=== PATIENT | female | born 1990 | race African-American/Black ===

== ENCOUNTER 2016-10-12 20:08 | Emergency (ER) | payer OTHER ==
--- NOTE | 2016-10-12 21:22 | ER Document Report ---
ED General - General Chief Complaint: Anxiety Stated Complaint: PANIC ATTACK Time seen by provider: 21:16 Mode of Arrival: Ambulatory Information source: Patient Notes: 26-year-old female presents to ED for anxiety attack prior to calling EMS. She states that it is all resolved now. States she took her medication but she still felt like her heart was racing and she was hyperventilating. She said she had not had a panic attack in awhile and this panic attack scared her. TRAVEL OUTSIDE OF THE [place] IN LAST 30 DAYS: No - HPI Onset: This evening Onset/Duration: Gone Quality of pain: No pain Severity: None Pain Level: Denies Associated symptoms: Other - States she was having a panic attack hyperventilating and her heart was racing all of these are gone now Exacerbated by: Denies Relieved by: Denies Similar symptoms previously: Yes Recently seen / treated by doctor: No - Related Data Allergies/Adverse Reactions: No Known Allergies Allergy (Verified 10/12/16 21:01) Home Medications: Current Home Medications Cariprazine Hydrochloride [Vraylar] 3 mg PO DAILY 10/12/16 [History] Duloxetine HCl [Duloxetine HCl] 60 mg PO BID 10/12/16 [History] Modafinil [Modafinil] 200 mg PO DAILY 10/12/16 [History] Past Medical History - General Information source: Patient - Social History Smoking Status: Never Smoker Cigarette use (# per day): No Chew tobacco use (# tins/day): No Smoking Education Provided: No Frequency of alcohol use: None Drug Abuse: None Occupation: [employer] Lives with: Family Family History: denies: Arthritis, CAD, COPD, CVA, DM, Hyperlipidemia, Hypertension, Malignancy, Thyroid Disfunction Patient has suicidal ideation: No Patient has homicidal ideation: No - Past Medical History Cardiac Medical History: Reports: None Pulmonary Medical History: Reports: None EENT Medical History: Reports: None Neurological Medical History: Reports: None Endocrine Medical History: Reports: None Renal/ Medical History: Reports: None. Denies: Hx Peritoneal Dialysis Malignancy Medical History: Reports: None GI Medical History: Reports: None Musculoskeltal Medical History: Reports None Psychiatric Medical History: Reports: Hx Anxiety - Panic attacks, Hx Attention Deficit Hyperactivity Disorder, Hx Bipolar Disorder, Hx Depression Traumatic Medical History: Reports: None Infectious Medical History: Reports: None Past Surgical History: Reports: Hx Oral Surgery - Immunizations Immunizations up to date: Yes Hx Diphtheria, Pertussis, Tetanus Vaccination: Yes Hx Pneumococcal Vaccination: 07/06/00 Review of Systems - Review of Systems Constitutional: No symptoms reported EENT: No symptoms reported Cardiovascular: No symptoms reported Respiratory: No symptoms reported Gastrointestinal: No symptoms reported Genitourinary: No symptoms reported Female Genitourinary: No symptoms reported Musculoskeletal: No symptoms reported Skin: No symptoms reported Hematologic/Lymphatic: No symptoms reported Neurological/Psychological: Anxiety, Other - Panic attacks -: Yes All other systems reviewed and negative Physical Exam - Vital signs Vitals: Temp Pulse Resp BP Pulse Ox 98.2 F 80 18 129/86 H 97 10/12/16 20:38 10/12/16 20:38 10/12/16 20:38 10/12/16 20:38 10/12/16 20:38 Interpretation: Normal - General General appearance: Appears well, Alert - HEENT Head: Normocephalic, Atraumatic Eyes: Normal Pupils: PERRL - Respiratory Respiratory status: No respiratory distress Chest status: Nontender Breath sounds: Normal Chest palpation: Normal - Cardiovascular Rhythm: Regular Heart sounds: Normal auscultation Murmur: No - Abdominal Inspection: Normal Distension: No distension Bowel sounds: Normal Tenderness: Nontender Organomegaly: No organomegaly - Back Back: Normal, Nontender - Extremities General upper extremity: Normal inspection, Nontender, Normal color, Normal ROM , Normal temperature General lower extremity: Normal inspection, Nontender, Normal color, Normal ROM , Normal temperature, Normal weight bearing. No: Janet's sign - Neurological Neuro grossly intact: Yes Cognition: Normal Orientation: AAOx4 [place] Coma Scale Eye Opening: Spontaneous Andrea Coma Scale Verbal: Oriented Andrea Coma Scale Motor: Obeys Commands [place] Coma Scale Total: 15 Speech: Normal Motor strength normal: LUE, RUE, LLE, RLE Sensory: Normal - Psychological Associated symptoms: Normal affect, Normal mood. No: Anxious, Irritable - Skin Skin Temperature: Warm Skin Moisture: Dry Skin Color: Normal Course - Re-evaluation Re-evalutation: 10/12/16 21:28 Patient states she was having a panic attack at home and her father is out of town. She states that the panic attack made her feel like her heart was racing and she was hyperventilating and is scared her so she called 911. Now she says she is upset that she did because she feels fine. Encourage patient to follow- up with Dr. Soriano tomorrow to get breakthrough medicine for when she has a panic attack. - Vital Signs Vital signs: Temp Pulse Resp BP Pulse Ox 98.2 F 80 18 129/86 H 97 10/12/16 20:38 10/12/16 20:38 10/12/16 20:38 10/12/16 20:38 10/12/16 20:38 Discharge - Discharge Clinical Impression: Panic attack Condition: Stable Disposition: HOME, SELF-CARE Instructions: Anxiety ([facility]) Additional Instructions: You were seen today for a panic attack. You state your symptoms have been relieved and you are ready to go home. Take your depression and anxiety medicine as prescribed. If you have another panic attack try listening to calming music or a calming television show to relax you. Sometimes laying down can actually make you think more and get more anxious and increase her panic attack. If you are going to lay down and put on some calming music. Anxiety The physician feels that some of your health problems are being caused by anxiety. Anxiety affects your health in many ways. Anxiety alone can cause palpitations, sweats, chest pains, abdominal pains, shortness of breath, and headaches. It contributes to ulcer disease, high blood pressure, irritable bowel syndrome, and has been shown to cause flare-ups of many other diseases. Anxiety is not a simple disorder to treat. If the anxiety is due to recent life stresses, you may simply need time to "work through" the changes. If the anxiety is due to an underlying unhappiness with yourself or due to psychiatric disturbance, professional help will be needed. Your physician can refer you for further help if needed. Anti-anxiety medication is occasionally given if the stress is acute or if you are having trouble sleeping. Chronic or frequent use of these medications is not a good idea because the body becomes reliant on it, preventing you from dealing with life's normal stresses. Please call Dr. Florez tomorrow to schedule a follow-up visit to get she something for breakthrough panic attacks. FOLLOW-UP CARE: If you have been referred to a physician for follow-up care, call the physician s office for an appointment as you were instructed or within the next two days. If you experience worsening or a significant change in your symptoms, notify the physician immediately or return to the Emergency Department at any time for re-evaluation. Please complete the patient's satisfaction survey if you get one and return. If you do not receive a survey you can go to [facility] website [email or web address] and place your comments about your very good care. Thank you very much. It was a pleasure be in your medical provider today. Forms: Elevated Blood Pressure Referrals: ANAMARIA FLOREZ MD [NO LOCAL MD] - Follow up as needed
[2016-10-12 21:24] VITALS: BP 127/81
== END 2016-10-12 21:29 | disposition home or self-care (01) ==
LOC: ER 20:08
DX: F41.0 Panic disorder [episodic paroxysmal anxiety] (principal); F41.9 Anxiety disorder, unspecified
CPT/HCPCS: 99283

== ENCOUNTER 2016-11-24 13:44 | Emergency (ER) | payer OTHER ==
[2016-11-24 14:25] VITALS: BP 126/81
[2016-11-24] MEDS ORDERED: IBUPROFEN 800 MG TABLET PO ONE (14:33)
--- NOTE | 2016-11-24 14:36 | ER Document Report ---
ED Extremity Problem, Upper - General Stated Complaint: ELBOW PAIN Time Seen by Provider: 11/24/16 14:26 Mode of Arrival: Ambulatory Information source: Patient Notes: Ill female presents to ED for pain in her right elbow. She states she was cleaning a machine and she hit her elbow on the machine. States she cannot move her elbow. States she has dislocated his elbow in the past and that what it feels like now. Elbow does not look dislocated but will get x-rays. TRAVEL OUTSIDE OF THE [place] IN LAST 30 DAYS: No - HPI Patient complains to provider of: Pain, Right, Arm, Elbow Onset: Just prior to arrival Recent injury: Yes Where: Work Quality of pain: Achy, Throbbing Severity of pain: Severe, Constant Pain Level: 5 Context: Blow - Hit machine with elbow - Related Data Allergies/Adverse Reactions: No Known Allergies Allergy (Verified 10/12/16 21:01) Past Medical History - General Information source: Patient - Social History Smoking Status: Never Smoker Cigarette use (# per day): No Chew tobacco use (# tins/day): No Smoking Education Provided: No Frequency of alcohol use: None Drug Abuse: None Occupation: 52 Partners Lives with: Family Family History: denies: Arthritis, CAD, COPD, CVA, DM, Hyperlipidemia, Hypertension, Malignancy, Thyroid Disfunction Renal/ Medical History: Denies: Hx Peritoneal Dialysis Psychiatric Medical History: Reports: Hx Anxiety - Panic attacks, Hx Attention Deficit Hyperactivity Disorder, Hx Bipolar Disorder, Hx Depression Past Surgical History: Reports: Hx Oral Surgery - Immunizations Immunizations up to date: Yes Hx Diphtheria, Pertussis, Tetanus Vaccination: Yes Hx Pneumococcal Vaccination: 07/06/00 Review of Systems - Review of Systems Constitutional: No symptoms reported EENT: No symptoms reported Cardiovascular: No symptoms reported Respiratory: No symptoms reported Gastrointestinal: No symptoms reported Genitourinary: No symptoms reported Female Genitourinary: No symptoms reported Musculoskeletal: Other - Pain in right elbow and upper arm she thinks she dislocated her elbow Skin: No symptoms reported Hematologic/Lymphatic: No symptoms reported Neurological/Psychological: No symptoms reported Physical Exam - Vital signs Vitals: Temp Pulse Resp BP Pulse Ox 98.2 F 78 18 126/81 H 97 11/24/16 14:24 11/24/16 14:24 11/24/16 14:24 11/24/16 14:24 11/24/16 14:24 Interpretation: Normal - General General appearance: Appears well, Alert - HEENT Head: Normocephalic, Atraumatic Eyes: Normal Pupils: PERRL - Respiratory Respiratory status: No respiratory distress Chest status: Nontender Breath sounds: Normal Chest palpation: Normal - Cardiovascular Rhythm: Regular Heart sounds: Normal auscultation Murmur: No - Abdominal Inspection: Normal Distension: No distension Bowel sounds: Normal Tenderness: Nontender Organomegaly: No organomegaly - Back Back: Normal, Nontender - Extremities General upper extremity: Normal inspection, Tender, Normal color, Normal temperature General lower extremity: Normal inspection, Nontender, Normal color, Normal ROM , Normal temperature, Normal weight bearing. No: Janet's sign Shoulder: Normal, Nontender Arm: Tender. No: Abrasion, Deformity, Ecchymosis, Instability, Laceration Elbow: Tender, Limited ROM - We will not move the elbow without a lot of encouragement. Patient has range of motion to the elbow when she will move it. No: Abrasion, Deformity, Dislocation, Ecchymosis, Instability, Joint effusion , Laceration, Swollen bursa - Neurological Neuro grossly intact: Yes Cognition: Normal Orientation: AAOx4 [place] Coma Scale Eye Opening: Spontaneous Andrea Coma Scale Verbal: Oriented [place] Coma Scale Motor: Obeys Commands [place] Coma Scale Total: 15 Speech: Normal Motor strength normal: LUE, RUE, LLE, RLE Sensory: Normal - Psychological Associated symptoms: Normal affect, Normal mood - Skin Skin Temperature: Warm Skin Moisture: Dry Skin Color: Normal Course - Re-evaluation Re-evalutation: 11/24/16 15:34 Discussed x-rays with patient and written report given to patient to follow-up with her primary doctor. Patient instructed on use of elevation ice and ibuprofen for pain. Patient to follow-up with orthopedics if she continues to have pain in her elbow and arm. - Vital Signs Vital signs: Temp Pulse Resp BP Pulse Ox 98.2 F 78 18 126/81 H 97 11/24/16 14:24 11/24/16 14:24 11/24/16 14:24 11/24/16 14:24 11/24/16 14:24 - Diagnostic Test Radiology reviewed: Image reviewed, Reports reviewed Discharge - Discharge Clinical Impression: Contusion of right elbow Qualifiers: Encounter type: initial encounter Qualified Code(s): S50.01XA - Contusion of right elbow, initial encounter Contusion of right upper arm Qualifiers: Encounter type: initial encounter Qualified Code(s): S40.021A - Contusion of right upper arm, initial encounter Condition: Stable Disposition: HOME, SELF-CARE Additional Instructions: CONTUSION: Your injury has resulted in a contusion -- a crushing of the deep tissues. No injury to important structures was detected during the physician's exam. Contusions vary in the amount of pain they cause, and in the length of time required for healing. Typically, the area will become bruised, and will remain painful to touch for two or three weeks. However, most patients are back to working and playing within a few days. After the initial period of rest and cold-packs, your symptoms (together with the doctor's recommendations) will determine how rapidly you can get back to full activity. Usually this means "do what feels okay, but don't do things that hurt." If re-examination was recommended, it's important to follow up as instructed. Call the doctor or return any time if pain increases, if swelling becomes severe, if you develop numbness or weakness in an injured extremity, or if any other alarming symptoms occur. USE OF TYLENOL (ACETAMINOPHEN): Acetaminophen may be taken for pain relief or fever control. It's much safer than aspirin, offering a wider range of "safe" dosages. It is safe during . Some brand names are Tylenol, Panadol, Datril, Anacin 3, Tempra, and Liquiprin. Acetaminophen can be repeated every four hours. The following are maximum recommended dosages: WEIGHT Dose Drops Elixir Chewable( 80mg) (LBS.) drprs=droppers tsp=teaspoon 6 40 mg 0.4 ml (1/2) 6-11 80 mg 0.8 ml (full) tsp 1 tab 12-16 120 mg 1 1/2 drprs 3/4 tsp 1 1/2 tabs 17-23 160 mg 2 drprs 1 tsp 2 tabs 24-30 240 mg 3 drprs 1 1/2 tsp 3 tabs 30-35 320 mg 2 tsp 4 tabs 36-41 360 mg 2 1/4 tsp 4 1/2 tabs 42-47 400 mg 2 1/2 tsp 5 tabs 48-53 480 mg 3 tsp 6 tabs 54-59 520 mg 3 1/4 tsp 6 1/2 tabs 60-64 560 mg 3 1/2 tsp 7 tabs 65-70 600 mg 3 3/4 tsp 7 1/2 tabs 71-76 640 mg 4 tsp 8 tabs 77-82 720 mg 4 1/2 tsp 9 tabs 83-88 800 mg 5 tsp 10 tabs >89 pounds or adults 650 mg to 900 mg Acetaminophen can be repeated every four hours. Maximum dose not to exceed 4000 mg a day. These maximum recommended dosages are slightly higher than the dosages written on the product container, but these dosages are very safe and below the toxic dosage for acetaminophen. ICE & ELEVATION: Apply ice packs frequently against the painful area. Many different schedules are recommended, such as "20 minutes on, 20 minutes off" or "one hour ice, two hours rest." If you need to work, you may need to go longer between ice treatments. You should plan to have the area ice packed AT LEAST one- fourth of the time. The ice should be applied over the wrap, tape, or splint, or over a layer of cloth -- not directly against the skin. Some ice bags have a built-in cloth and can be put directly on the skin. Your injured part should be elevated as much as possible over the next 48 hours. Try to keep the injury above the level of the heart. Avoid use of the injured area. Elevation and rest will decrease the swelling. USE OF [facility]-BRA-CYFWQUX IBUPROFEN: Ibuprofen (Advil, Nuprin, Medipren, Motrin IB) is a medication for fever and pain control. In addition, it has anti- inflammatory effects which may be beneficial, especially in the treatment of injuries. It's best to take ibuprofen with food. Persons with ulcer disease or allergy to aspirin should notify their physician of this before taking ibuprofen. Ibuprofen can be given every four to six hours, for a total of four doses daily. Age Pain or fever dose Antiinflammatory dose 6-8 yr 200 mg (1 tab) 200 mg (1 tab) 9-11 yr 200 mg (1 tab) 200-400 mg (1-2 tab) 11-14 yr 200-400 mg (1-2 tab) 400 mg (2 tab) 15-adult 400 mg (2 tab) 600 mg (3 tab) FOLLOW-UP CARE: If you have been referred to a physician for follow-up care, call the physician s office for an appointment as you were instructed or within the next two days. If you experience worsening or a significant change in your symptoms, notify the physician immediately or return to the Emergency Department at any time for re-evaluation. Forms: Elevated Blood Pressure, Return to Work Referrals: VALERI DALEY, [ACTIVE STAFF] - Follow up as needed
--- NOTE | 2016-11-24 15:13 | RADIOLOGY REPORT (SQ) ---
EXAM DESCRIPTION: ELBOW RIGHT OVER 2 VIEWS COMPLETED DATE/TIME: 11/24/2016 3:05 pm REASON FOR STUDY: pain and injury COMPARISON: None. NUMBER OF VIEWS: Four views. TECHNIQUE: AP, lateral, and both oblique radiographic images acquired of the right elbow. LIMITATIONS: None. FINDINGS: MINERALIZATION: Normal. BONES: No acute fracture or dislocation. No worrisome bone lesions. JOINT: No effusion. SOFT TISSUES: No soft tissue swelling. No foreign body. OTHER: No other significant finding. IMPRESSION: NEGATIVE STUDY OF THE RIGHT ELBOW. NO RADIOGRAPHIC EVIDENCE OF ACUTE INJURY. TECHNICAL DOCUMENTATION: JOB ID: [id number] [employer]- All Rights Reserved
--- NOTE | 2016-11-24 15:14 | RADIOLOGY REPORT (SQ) ---
EXAM DESCRIPTION: HUMERUS RIGHT COMPLETED DATE/TIME: 11/24/2016 3:05 pm REASON FOR STUDY: pain and injury COMPARISON: None. NUMBER OF VIEWS: Two views. TECHNIQUE: Two radiographic images were acquired of the right humerus to include elbow and shoulder in at least one projection. LIMITATIONS: None. FINDINGS: MINERALIZATION: Normal. BONES: No acute fracture or dislocation. No worrisome bone lesions. SOFT TISSUES: No obvious swelling or foreign body. OTHER: No other significant finding. IMPRESSION: NEGATIVE STUDY OF THE RIGHT HUMERUS. NO RADIOGRAPHIC EVIDENCE OF ACUTE INJURY. TECHNICAL DOCUMENTATION: JOB ID: [id number] [employer]- All Rights Reserved
== END 2016-11-24 15:42 | disposition home or self-care (01) ==
LOC: ER 13:44
DX: S40.021A Contusion of right upper arm, initial encounter (principal); S50.01XA Contusion of right elbow, initial encounter; M25.521 Pain in right elbow; W22.09XA Striking against other stationary object, initial encounter; Y99.0 Civilian activity done for income or pay
CPT/HCPCS: 99283

== ENCOUNTER 2017-03-04 16:35 | Emergency (ER) | payer OTHER ==
[2017-03-04 17:20] VITALS: BP 120/79
--- NOTE | 2017-03-04 18:14 | ER Document Report ---
HPI - HPI Pain Level: 4 Notes: Patient is a 26-year-old female who presents the ED complaining of chronic bilateral MTP joint pains 1-1/2-2 years. Patient states that it feels like she has a larger knuckle in those areas. Patient has been trying to cushion the area when she is using and wearing shoes with minimal relief. Patient states that she has not been evaluated in the last year and half to 2 years for this pain. She has not tried any [id number] meds for her symptoms. Patient is still able to ambulate without any difficulty. The pain does not radiate. She is still able to move her toes without any difficulties. She denies any history of gout. She has not noticed any redness, abscess, or discharge. No other concerns or complaints at this time. Denies any other significant past medical history. Denies any drug allergies. Denies any headache, fever, chest pain, palpitations, syncope, cough, shortness of breath, wheeze, dyspnea, abdominal pain, nausea/vomiting/diarrhea, numbness/tingling, muscle paralysis/weakness, or rash. - ROS Notes: REVIEW OF SYSTEMS: CONSTITUTIONAL : Denies fever, chills, or sweats. Denies recent illness. EENT: Denies eye, ear, throat, or mouth pain or symptoms. Denies nasal or sinus congestion or discharge. Denies throat, tongue, or mouth swelling or difficulty swallowing. CARDIOVASCULAR: Denies chest pain. Denies palpitations or racing or irregular heart beat. Denies ankle edema. RESPIRATORY: Denies cough, cold, or chest congestion. Denies shortness of breath, difficulty breathing, or wheezing. GASTROINTESTINAL: Denies abdominal pain or distention. Denies nausea, vomiting , or diarrhea. Denies blood in vomitus, stools, or per rectum. Denies black, tarry stools. Denies constipation. GENITOURINARY: Denies difficulty urinating, painful urination, burning, frequency, blood in urine, or discharge. MUSCULOSKELETAL: see hpi SKIN: Denies rash, lesions or sores. NEUROLOGICAL: Denies confusion or altered mental status. Denies passing out or loss of consciousness. Denies dizziness or lightheadedness. Denies headache. Denies weakness or paralysis or loss of use of either side. Denies problems with gait or speech. Denies sensory loss, numbness, or tingling. Denies seizures. PSYCHIATRIC: Denies anxiety or stress. Denies depression, suicidal ideation, or homicidal ideation. ALL OTHER SYSTEMS REVIEWED AND NEGATIVE. Dictation was performed using [employer] voice recognition software - CARDIOVASCULAR Cardiovascular: DENIES: Chest pain - REPRODUCTIVE LMP: Reproductive: DENIES: : - DERM Skin Color: Normal Past Medical History - Social History Smoking Status: Never Smoker Chew tobacco use (# tins/day): No Frequency of alcohol use: None Drug Abuse: None Family History: denies: Arthritis, CAD, COPD, CVA, DM, Hyperlipidemia, Hypertension, Malignancy, Thyroid Disfunction Patient has suicidal ideation: No Patient has homicidal ideation: No Renal/ Medical History: Denies: Hx Peritoneal Dialysis Psychiatric Medical History: Reports: Hx Anxiety - Panic attacks, Hx Attention Deficit Hyperactivity Disorder, Hx Bipolar Disorder, Hx Depression Past Surgical History: Reports: Hx Oral Surgery - Immunizations Immunizations up to date: Yes Hx Diphtheria, Pertussis, Tetanus Vaccination: Yes Hx Pneumococcal Vaccination: 07/06/00 Vertical Provider Document - CONSTITUTIONAL Agree With Documented VS: Yes Notes: PHYSICAL EXAMINATION: GENERAL: Well-appearing, well-nourished and in no acute distress. LUNGS: Breath sounds clear to auscultation bilaterally and equal. No wheezes rales or rhonchi. HEART: Regular rate and rhythm without murmurs, rubs, gallops. Musculoskeletal: B/l feet: FROM to passive/active. Strength 5+/5. + minimal tenderness to MTP joints b/l without any erythema, warmth, abscess, streaks. + bunions b/l. Extremities: No cyanosis, clubbing, or edema b/l. Peripheral pulses 2+. Capillary refill less than 3 seconds. NEUROLOGICAL: Normal speech, normal gait. Normal sensory, motor exams PSYCH: Normal mood, normal affect. SKIN: Warm, Dry, normal turgor, no rashes or lesions noted. - INFECTION CONTROL TRAVEL OUTSIDE OF THE [place] IN LAST 30 DAYS: No - RESPIRATORY O2 Sat by Pulse Oximetry: 98 Course - Re-evaluation Re-evalutation: 03/04/17 18:12 Patient is an afebrile, well-hydrated, 26-year-old female who presents the ED with bilateral MTP joint pain, suspect bunions to her MTP joints. Vitals are stable. PE otherwise unremarkable at this time. Low suspicion for any gout, septic joint, sepsis, fracture, neurovascular compromise, or other systemic emergent condition at this time. Patient is aware that her condition can change from initial presentation and she needs to monitor symptoms closely and seek medical attention if any acute changes. I will send her home with a prescription for naproxen and Voltaren gel. Ice was placed in the office today. Conservative measures otherwise for symptoms. Recheck with her PCM in 2 -3 days. Schedule an appointment with podiatry for further evaluation. Return to the ED with any worsening/concerning symptoms otherwise as reviewed in discharge. Patient is in agreement. - Vital Signs Vital signs: Temp Pulse Resp BP Pulse Ox 98.4 F 97 16 120/79 98 03/04/17 17:19 03/04/17 17:19 03/04/17 17:19 03/04/17 17:19 03/04/17 17:19 Discharge - Discharge Clinical Impression: Bilateral bunions, Toe pain, bilateral Condition: Stable Disposition: HOME, SELF-CARE Instructions: Ice & Elevation ([facility]), Warm Packs ([facility]) Additional Instructions: Rest, Ice, Compression, Elevation Tylenol/ibuprofen as needed Light stretches daily Strength exercises as able Moist heat and massage may help F/u with your PCP in 2-3 days for a recheck Consider consult(s) with Podiatry/Orthopedics/physical therapy for ongoing/ worsening symptoms Return to the ED with any worsening symptoms and/or development of fever, headache, chest pain, palpitations, syncope, shortness of breath, trouble breathing, abdominal pain, n/v/d, muscle weakness/paralysis, numbness/tingling, swelling, redness, or other worsening symptoms that are concerning to you. Prescriptions: Diclofenac Sodium [Voltaren] 4 gm TP QID PRN #100 gel..gm. PRN Reason: Naproxen 500 mg PO BID PRN #30 tablet PRN Reason: Referrals: PODIATRY [Provider Group] - Follow up as needed JOANNA TODD DPM [ACTIVE STAFF] - Follow up as needed ALISA OVERTON MD [Primary Care Provider] - Follow up in 3-5 days
== END 2017-03-04 18:18 | disposition home or self-care (01) ==
LOC: ER 16:35
DX: M79.675 Pain in left toe(s) (principal); M79.674 Pain in right toe(s); M21.612 Bunion of left foot; M21.611 Bunion of right foot
CPT/HCPCS: 99283

== ENCOUNTER → 2017-03-25 | Outpatient (CLI) | payer OTHER ==
--- NOTE | 2017-03-25 09:40 | WOMENS IMAGING REPORT ---
EXAM DESCRIPTION: U/S PELVIS NON-OB COMPLETED DATE/TIME: 03/25/2017 8:55 am REASON FOR STUDY: PELVIC PAIN R10.2 PELVIC AND PERINEAL PAIN COMPARISON: January 2016 TECHNIQUE: Dynamic and static grayscale images acquired of the pelvis via transabdominal approach an d recorded on PACS. Additional selected color Doppler and spectral images recorded. LIMITATIONS: None. FINDINGS: UTERUS: Contour normal. No mass. ENDOMETRIAL STRIPE: There is heterogeneous echogenicity within the endometrial stripe with a hypoecho ic area which could represent a small blood clot. CERVIX: No nabothian cysts. RIGHT OVARY: Right ovary was not visualized. LEFT OVARY: No abnormal masses. LEFT OVARY DOPPLER: Normal arterial vascular flow without evidence for torsion. FREE FLUID: Small amount of free fluid is identified in the posterior cul-de-sac. OTHER: No other significant finding. MEASUREMENTS: UTERUS: 8.7 x 5.5 x 5.8 cm ENDOMETRIAL STRIPE: 13 mm RIGHT OVARY: Not visualized LEFT OVARY: 3.0 x 2.0 x 2.6 cm IMPRESSION: Heterogeneous echogenicity within the endometrial stripe is noted above. No other signi ficant findings. TECHNICAL DOCUMENTATION: JOB ID: [id number] [employer]- All Rights Reserved
== END ==
LOC: WI 07:14
PROVIDERS: ATTEND Physician Assistant
DX: R10.2 Pelvic and perineal pain (principal)
CPT/HCPCS: 76856

== ENCOUNTER 2018-01-28 23:04 | Emergency (ER) | payer BC, OTHER ==
--- NOTE | 2018-01-29 00:17 | ER Document Report ---
ED Medical Screen (RME) - General Chief Complaint: Abdominal Pain Stated Complaint: ABDOMINAL PAIN Time Seen by Provider: 01/29/18 00:15 Mode of Arrival: Ambulatory Information source: Patient Notes: 27-year-old female presented to ED for left lower quadrant pain for the last 2- 3 hours. She states she has never had pain like this before. She states she is having some nausea and a little spit up but no real vomiting. She states her last menstrual period started 2-3 days ago. She denies smoking drinking or doing any drugs. She denies any past medical history. She denies any past surgical history. She is alert oriented respirations regular and unlabored she is able to answer all questions and walk with a steady gait. She also complains of being dizzy. I have greeted and performed a rapid initial assessment of this patient. A comprehensive ED assessment and evaluation of the patient, analysis of test results and completion of medical decision making process will be conducted by an additional ED providers. TRAVEL OUTSIDE OF THE [place] IN LAST 30 DAYS: No - Related Data Allergies/Adverse Reactions: No Known Allergies Allergy (Verified 01/28/18 23:08) Past Medical History Renal/ Medical History: Denies: Hx Peritoneal Dialysis Psychiatric Medical History: Reports: Hx Anxiety - Panic attacks, Hx Attention Deficit Hyperactivity Disorder, Hx Bipolar Disorder, Hx Depression Past Surgical History: Reports: Hx Oral Surgery - Immunizations Immunizations up to date: Yes Hx Diphtheria, Pertussis, Tetanus Vaccination: Yes Physical Exam - Vital signs Vitals: Temp Pulse Resp BP Pulse Ox 98.3 F 71 16 120/89 H 100 01/28/18 23:13 01/28/18 23:13 01/28/18 23:13 01/28/18 23:13 01/28/18 23:13 Course - Vital Signs Vital signs: Temp Pulse Resp BP Pulse Ox 98.3 F 71 16 120/89 H 100 01/28/18 23:13 01/28/18 23:13 01/28/18 23:13 01/28/18 23:13 01/28/18 23:13 Doctor's Discharge - Discharge Referrals: MIRA CHRISTINA PA [Primary Care Provider] - Follow up as needed
[2018-01-29] MEDS ORDERED: HALOPERIDOL LACTATE INJ 5 MG/1 ML VIAL IM ONE (02:03)
--- NOTE | 2018-01-29 02:04 | ER Document Report ---
ED GI/ - General Chief Complaint: Abdominal Pain Stated Complaint: ABDOMINAL PAIN Time Seen by Provider: 01/29/18 00:15 Mode of Arrival: Ambulatory Notes: The patient is a 27-year-old female, past medical history depression, bipolar, history of opioid addiction, presents with 3 hours of left upper abdominal pain and nausea. She describes it as a burning sensation. She denies urinary symptoms, fevers, vomiting, diarrhea, constipation, chest pain, shortness of breath or headache. TRAVEL OUTSIDE OF THE [place] IN LAST 30 DAYS: No - Related Data Allergies/Adverse Reactions: No Known Allergies Allergy (Verified 01/28/18 23:08) Past Medical History - General Information source: Patient - Social History Smoking Status: Unknown if Ever Smoked Drug Abuse: Prescription drugs Family History: denies: Arthritis, CAD, COPD, CVA, DM, Hyperlipidemia, Hypertension, Malignancy, Thyroid Disfunction Renal/ Medical History: Denies: Hx Peritoneal Dialysis Psychiatric Medical History: Reports: Hx Anxiety - Panic attacks, Hx Attention Deficit Hyperactivity Disorder, Hx Bipolar Disorder, Hx Depression Past Surgical History: Reports: Hx Oral Surgery - Immunizations Immunizations up to date: Yes Hx Diphtheria, Pertussis, Tetanus Vaccination: Yes Hx Pneumococcal Vaccination: 07/06/00 Review of Systems - Review of Systems Notes: REVIEW OF SYSTEMS: CONSTITUTIONAL: -fevers, -chills EENT: -eye pain, -difficulty swallowing, -nasal congestion CARDIOVASCULAR: -chest pain, -syncope. RESPIRATORY: -cough, -SOB GASTROINTESTINAL: +epigastric abdominal pain, +nausea, -vomiting, -diarrhea GENITOURINARY: -dysuria, -hematuria MUSCULOSKELETAL: -back pain, -neck pain SKIN: -rash or skin lesions. HEMATOLOGIC: -easy bruising or bleeding. LYMPHATIC: -swollen, enlarged glands. NEUROLOGICAL: -altered mental status or loss of consciousness, -headache, - neurologic symptoms PSYCHIATRIC: -anxiety, -depression. ALL OTHER SYSTEMS REVIEWED AND NEGATIVE. Physical Exam - Vital signs Vitals: Temp Pulse Resp BP Pulse Ox 98.3 F 71 16 120/89 H 100 01/28/18 23:13 01/28/18 23:13 01/28/18 23:13 01/28/18 23:13 01/28/18 23:13 - Notes Notes: PHYSICAL EXAMINATION: GENERAL: Well-appearing, well-nourished and in no acute distress. HEAD: Atraumatic, normocephalic. EYES: Pupils equal round and reactive to light, extraocular movements intact, sclera anicteric, conjunctiva are normal. ENT: nares patent, oropharynx clear without exudates. Moist mucous membranes. NECK: Normal range of motion, supple without lymphadenopathy LUNGS: Breath sounds clear to auscultation bilaterally and equal. No wheezes rales or rhonchi. HEART: Regular rate and rhythm without murmurs ABDOMEN: Soft, epigastric tenderness, normoactive bowel sounds. No guarding, no rebound. No masses appreciated. EXTREMITIES: Normal range of motion, no pitting or edema. No cyanosis. NEUROLOGICAL: Cranial nerves grossly intact. Normal speech, normal gait. Normal sensory and motor exams. PSYCH: Normal mood, normal affect. SKIN: Warm, Dry, normal turgor, no rashes or lesions noted. Course - Re-evaluation Re-evalutation: Patient appears well. She is only having mild epigastric pain and tenderness. No peritoneal signs on physical exam. Her blood work is unremarkable and she is not . After a GI cocktail, she feels much better. Instructed her about beginning Pepcid for suspected gastritis and following up with her primary care physician for further evaluation and treatment. Also provided her with GI follow-up if her pain does not resolve. - Vital Signs Vital signs: Temp Pulse Resp BP Pulse Ox 98.3 F 71 16 120/89 H 100 01/28/18 23:13 01/28/18 23:13 01/28/18 23:13 01/28/18 23:13 01/28/18 23:13 - Laboratory Result Diagrams: 01/29/18 02:00 01/29/18 02:00 Laboratory results interpreted by me: 01/29/18 01/29/18 01/29/18 02:00 02:00 02:00 RBC 3.64 L Hct 34.3 L Urine Blood LARGE H Urine Urobilinogen 4.0 H Acetaminophen < 10 L Discharge - Discharge Clinical Impression: Epigastric pain, Nausea Condition: Stable Disposition: HOME, SELF-CARE Additional Instructions: Gastritis You have an inflammation of the stomach called gastritis. This commonly causes upper abdominal pain, nausea, and vomiting. In severe cases, bleeding of the stomach lining can occur. Gastritis can be caused by bacteria or viruses , alcohol, or stomach-irritating drugs. Begin with sips of clear liquids. Take increasing amounts of fluid over the first 24 hours. Then start small amounts of bland foods (such as dry toast , applesauce, mashed potato). Gradually resume your usual diet. You should take antacids every two hours until the pain has subsided. Acid -suppressing drugs may be prescribed as well. Avoid aspirin, caffeine, tobacco , and alcohol. If the abdominal pain worsens, or there is evidence of major bleeding in the stomach (such as black, tarry stool, bloody or black vomit, or lightheadedness), you should return immediately. Call the doctor if you aren't improved in 24 to 36 hours. ABDOMINAL PAIN: There are many causes of abdominal pain. Pain can mean a serious problem requiring surgery (such as appendicitis). It can also be an innocent problem that goes away on its own (such as a viral infection). Often, time must pass to determine the cause of pain. The physician does not feel that hospitalization is necessary, at present. Things may change within the next 24 hours. Call the doctor or come back for re- examination if any problems occur, such as: (1) Pain that becomes more severe, steady, or becomes concentrated in one specific area. Also, pain that is more severe with movement or coughing. (2) Vomiting that persists or becomes more frequent. (3) Blood in the vomitus, urine, or bowel movements. Blood in the stool may have a tarry or black appearance. (4) Shaking chills or fever greater than 100 degrees F. (5) The abdomen becomes more distended or swollen. (6) Bowel movements cease. (7) Failure to improve as expected. NORMAL EXAM AND WORKUP: At this time, your examination and workup show no significant abnormality. No significant abnormal physical findings are noted. All laboratory, EKG, and imaging (x-ray, CT scans, ultrasound) studies that were ordered show no significant abnormality. Although your examination and all studies that were ordered showed no significant abnormal finding, there are no examinations and no studies that are 100% accurate. There is always the possibility that some abnormality could exist and not be detected with physical examination or within the limits and capabilities of laboratory and other studies. You should return or follow up as you were instructed on your visit today for further evaluation if your symptoms do not resolve. ANTINAUSEA MEDICATION: You have been given a medication to suppress nausea and vomiting. This type of medication can be given as a shot, pill, or suppository. It will usually last for many hours. Pills and shots usually last six to eight hours, suppositories last about 12 hours. For the typical illness, only one or two doses of the medication may be necessary. Mild lightheadedness may occur. This type of medicine can cause drowsiness. Do not drive or operate dangerous machinery while under its influence. Do not mix with alcohol. See your doctor at once if you have muscle spasms or tightness, or uncontrollable motions (particularly of the neck, mouth, or jaw). Persistent vomiting or severe lightheadedness should also be evaluated by the physician. FOLLOW-UP CARE: If you have been referred to a physician for follow-up care, call the physician s office for an appointment as you were instructed or within the next two days. If you experience worsening or a significant change in your symptoms, notify the physician immediately or return to the Emergency Department at any time for re-evaluation. Prescriptions: Famotidine [Pepcid 20 mg Tablet] 20 mg PO BID #12 tablet Ondansetron [Zofran Odt 4 mg Tablet] 1 - 2 tab PO Q4H PRN #15 tab.rapdis PRN Reason: For Nausea/Vomiting Forms: Elevated Blood Pressure Referrals: MIRA CHRISTINA PA [Primary Care Provider] - Follow up as needed JONAH IBRAHIM MD [ACTIVE STAFF] - Follow up as needed
[2018-01-29] MEDS ORDERED: MAG HYDROX/AL HYDROX/SIMETH SUSP 30 ML UDCUP PO ONE (02:06)
[2018-01-29] MEDS ORDERED: LIDOCAINE 2% VISCOUS SOLN 20 ML UDCUP PO ONE (02:06)
[2018-01-29] MEDS ORDERED: METOCLOPRAMIDE HCL ORAL SOLN 10 MG/10 ML UDCUP PO ONE (02:06)
[2018-01-29 02:24] LABS: ABSOLUTE EOSINOPHILS # (AUTO) 0.2 10^3/uL (0.0-0.6); ABSOLUTE LYMPHOCYTES (AUTO) 2.2 10^3/uL (0.5-4.7); ABSOLUTE MONOCYTES (AUTO) 0.3 10^3/uL (0.1-1.4); ABSOLUTE NEUT (AUTO) 2.8 10^3/uL (1.7-8.2); BASOPHILS % (AUTO) 0.6 % (0-2); EOSINOPHILS % (AUTO) 4.1 % (0-6); HEMATOCRIT 34.3 % (36.0-47.0); LYMPHOCYTES % (AUTO) 39.1 % (13-45); MEAN CORPUSCULAR VOLUME 94 fl (80-97); MONOCYTES % (AUTO) 5.4 % (3-13); PLATELET COUNT 211 10^3/uL (150-450); RED BLOOD COUNT 3.64 10^6/uL (3.72-5.28); RED CELL DISTRIBUTION WIDTH 12.3 % (11.5-14.0); SEGMENTED NEUTROPHILS % (AUTO) 50.8 % (42-78); TOTAL CELLS COUNTED % (AUTO) 100 %; WHITE BLOOD COUNT 5.6 10^3/uL (4.0-10.5)
[2018-01-29 02:26] LABS: APPEARANCE,URINE CLEAR; BILIRUBIN,URINE NEGATIVE (NEGATIVE); COLOR,URINE YELLOW; GLUCOSE, URINE NEGATIVE (NEGATIVE); KETONES,URINE NEGATIVE (NEGATIVE); LEUKOCYTE ESTERASE,URINE NEGATIVE (NEGATIVE); NITRITE,URINE NEGATIVE (NEGATIVE); PROTEIN,URINE NEGATIVE (NEGATIVE); URINE SPECIFIC GRAVITY 1.012
[2018-01-29 02:38] LABS: ACETAMINOPHEN < 10 ug/mL (10-30); ALANINE AMINOTRANSFERASE 26 U/L (9-52); ALBUMIN 4.3 g/dL (3.5-5.0); ALKALINE PHOSPHATASE 66 U/L (38-126); ANION GAP 12 (5-19); ASPARTATE AMINO TRANSFERASE 20 U/L (14-36); BILIRUBIN,DIRECT 0.2 mg/dL (0.0-0.4); BILIRUBIN,TOTAL 0.6 mg/dL (0.2-1.3); BLOOD UREA NITROGEN 10 mg/dL (7-20); CALCIUM 9.4 mg/dL (8.4-10.2); CARBON DIOXIDE 26 mmol/L (22-30); CHLORIDE 106 mmol/L (98-107); GLUCOSE 96 mg/dL (75-110); LIPASE 123.9 U/L (23-300); POTASSIUM 4.4 mmol/L (3.6-5.0); SODIUM 143.8 mmol/L (137-145); TOTAL PROTEIN 6.9 g/dL (6.3-8.2)
[2018-01-29 02:56] VITALS: BP 106/65
[2018-01-29 03:22] LABS: URINE AMPHETAMINES SCREEN NEGATIVE; URINE BARBITURATES SCREEN NEGATIVE; URINE BENZODIAZEPINES SCREEN NEGATIVE; URINE COCAINE SCREEN NEGATIVE; URINE MARIJUANA (THC) SCREEN NEGATIVE; URINE METHADONE SCREEN NEGATIVE; URINE PHENCYCLIDINE SCREEN NEGATIVE
== END 2018-01-29 03:08 | disposition home or self-care (01) ==
LOC: ER 23:04
DX: R10.13 Epigastric pain (principal); R11.0 Nausea
CPT/HCPCS: 99284; 96372; 36415; 83690; 80307 ×2; 84703; 85025; 80053; 81001; J1630; J3490

== ENCOUNTER 2018-03-03 21:02 | Emergency (ER) | payer BC ==
[2018-03-03] MEDS ORDERED: KETOROLAC TROMETHAMINE INJ/PF 30 MG/1 ML SDV IV ONE (23:15)
--- NOTE | 2018-03-03 23:16 | ER Document Report ---
ED General - General Mode of Arrival: Ambulatory Information source: Patient TRAVEL OUTSIDE OF THE [place] IN LAST 30 DAYS: No <KAREN RENE - Last Filed: 03/03/18 23:32> <MIRA WOODS - Last Filed: 03/04/18 00:21> - General Chief Complaint: Chest Pressure Stated Complaint: CHEST PRESSURE Time Seen by Provider: 03/03/18 23:07 Notes: Patient is a 27-year-old female ADHD, bipolar disorder, anxiety, depression presents to the emergency department complaining of multiple symptoms including chest pain, anxiety, fatigue and left shoulder pain. Patient states that her chest pain was onset yesterday and describes it as a tightness that is exacerbated with deep breathing. She states she has "bad stress" and has been under new stress lately further stating she recently received a job doing janitorial work. She also complains of left shoulder pain however she contributes this to overuse from frequently playing the guitar. Patient denies recent coughs, fevers or a history of asthma. (KAREN RENE) - Related Data Allergies/Adverse Reactions: No Known Allergies Allergy (Verified 01/28/18 23:08) Past Medical History - General Information source: Patient - Social History Smoking Status: Never Smoker Cigarette use (# per day): No Chew tobacco use (# tins/day): No Smoking Education Provided: No Frequency of alcohol use: None Psychiatric Medical History: Reports: Hx Anxiety - Panic attacks, Hx Attention Deficit Hyperactivity Disorder, Hx Bipolar Disorder, Hx Depression Past Surgical History: Reports: Hx Oral Surgery - Immunizations Immunizations up to date: Yes Hx Diphtheria, Pertussis, Tetanus Vaccination: Yes Hx Pneumococcal Vaccination: 07/06/00 <KAREN RENE - Last Filed: 03/03/18 23:32> - Social History Family History: Reviewed & Not Pertinent <MIRA WOODS - Last Filed: 03/04/18 00:21> Review of Systems - Review of Systems Constitutional: No symptoms reported EENT: No symptoms reported Cardiovascular: See HPI, Chest pain Respiratory: See HPI Gastrointestinal: No symptoms reported Genitourinary: No symptoms reported Female Genitourinary: No symptoms reported Musculoskeletal: No symptoms reported Skin: No symptoms reported Hematologic/Lymphatic: No symptoms reported Neurological/Psychological: See HPI, Anxiety -: Yes All other systems reviewed and negative <KAREN RENE - Last Filed: 03/03/18 23:32> Physical Exam <KAREN RENE - Last Filed: 03/03/18 23:32> <MIRA WOODS - Last Filed: 03/04/18 00:21> - Vital signs Vitals: Temp Pulse BP Pulse Ox 98.1 F 86 126/89 H 97 03/03/18 21:32 03/03/18 21:32 03/03/18 21:32 03/03/18 21:32 - Notes Notes: GENERAL: Alert, interacts well. No acute distress. HEAD: Normocephalic, atraumatic. EYES: Pupils equal, round, and reactive to light. Extraocular movements intact. ENT: Oral mucosa moist, tongue midline. NECK: Full range of motion. Supple. Trachea midline. LUNGS: Clear to auscultation bilaterally, no wheezes, rales, or rhonchi. No respiratory distress. Anterior chest wall tenderness to palpation, reproducible chest pain with movement. HEART: Regular rate and rhythm. No murmurs, gallops, or rubs. EXTREMITIES: Moves all 4 extremities spontaneously. NEUROLOGICAL: Alert and oriented x3. Normal speech. PSYCH: Normal affect, normal mood. SKIN: Warm, dry, normal turgor. No rashes or lesions noted. (KAREN RENE) Course <KAREN RENE - Last Filed: 03/03/18 23:32> <MIRA WOODS - Last Filed: 03/04/18 00:21> - Re-evaluation Re-evalutation: 03/03/18 23:58 No acute findings on EKG her chest x-ray. Patient is feeling somewhat better after Toradol. Pain seems musculoskeletal in nature. Full range of motion of bilateral extremities. Neurovascularly intact. She is to follow-up with her primary doctor regarding further symptoms. She will be given a prescription for Vistaril as needed for anxiety. (MIRA WOODS) - Vital Signs Vital signs: Temp Pulse Resp BP Pulse Ox 98.1 F 86 126/89 H 97 03/03/18 21:32 03/03/18 21:32 03/03/18 21:32 03/03/18 21:32 Discharge <KAREN RENE - Last Filed: 03/03/18 23:32> <MIRA WOODS - Last Filed: 03/04/18 00:21> - Discharge Clinical Impression: Chest wall pain, Anxiety Condition: Stable Disposition: HOME, SELF-CARE Instructions: Anxiety ([facility]), Chest Wall Pain ([facility]) Additional Instructions: Your chest pain does not appear to be anything dangerous. Please follow-up with your doctor regarding her left shoulder pain and increased anxiety recently. Prescriptions: Hydroxyzine Pamoate [Vistaril 25 mg Capsule] 25 mg PO BIDP PRN #14 capsule PRN Reason: Naproxen 250 mg PO DAILY #20 tablet Referrals: ALISA OVERTON MD [ACTIVE STAFF] - Follow up in 3-5 days Scribe Attestation: 03/04/18 00:21 I personally performed the services described in the documentation, reviewed and edited the documentation which was dictated to the scribe in my presence, and it accurately records my words and actions. (MIRA WOODS) Scribe Documentation - Scribe Written by Daynaibe:: Marcelino Mcclure, 03/03/2018 23:40 acting as scribe for :: Awa <KAREN RENE - Last Filed: 03/03/18 23:32>
--- NOTE | 2018-03-03 23:32 | RADIOLOGY REPORT (SQ) ---
EXAM DESCRIPTION: XR CHEST 2 VIEWS COMPLETED DATE/TME: 03/03/2018 23:15 CLINICAL HISTORY: 27 years Female, CP COMPARISON: None. FINDINGS: Adequate lung volume, clear parenchyma, normal cardiac silhouette, and intact bony thorax. IMPRESSION: No acute cardiopulmonary findings.
[2018-03-04 00:19] VITALS: BP 126/89
--- NOTE | 2018-03-04 07:53 | EKG REPORT ---
SEVERITY:- BORDERLINE ECG - SINUS RHYTHM BORDERLINE PROLONGED QT INTERVAL : Confirmed by: Magan Huff MD 04-Mar-2018 07:53:05
== END 2018-03-04 00:23 | disposition home or self-care (01) ==
LOC: ER 21:02
DX: R07.89 Other chest pain (principal); F41.9 Anxiety disorder, unspecified
CPT/HCPCS: 93005; 99285; 71046; 93010; J1885

== ENCOUNTER 2018-05-21 22:34 | Emergency (ER) | payer BC ==
[2018-05-21 23:01] LABS: ABSOLUTE EOSINOPHILS # (AUTO) 0.2 10^3/uL (0.0-0.6); ABSOLUTE LYMPHOCYTES (AUTO) 1.8 10^3/uL (0.5-4.7); ABSOLUTE MONOCYTES (AUTO) 0.3 10^3/uL (0.1-1.4); ABSOLUTE NEUT (AUTO) 2.5 10^3/uL (1.7-8.2); BASOPHILS % (AUTO) 0.7 % (0-2); EOSINOPHILS % (AUTO) 4.4 % (0-6); HEMATOCRIT 34.7 % (36.0-47.0); HEMOGLOBIN 12.2 g/dL (12.0-15.5); LYMPHOCYTES % (AUTO) 36.5 % (13-45); MEAN CORPUSCULAR HEMOGLOBIN 33.6 pg (27.0-33.4); MEAN CORPUSCULAR HGB CONC 35.2 g/dL (32.0-36.0); MEAN CORPUSCULAR VOLUME 96 fl (80-97); MONOCYTES % (AUTO) 6.6 % (3-13); PLATELET COUNT 249 10^3/uL (150-450); RED BLOOD COUNT 3.63 10^6/uL (3.72-5.28); RED CELL DISTRIBUTION WIDTH 12.5 % (11.5-14.0); SEGMENTED NEUTROPHILS % (AUTO) 51.8 % (42-78); TOTAL CELLS COUNTED % (AUTO) 100 %; WHITE BLOOD COUNT 4.9 10^3/uL (4.0-10.5)
[2018-05-21 23:20] LABS: ALANINE AMINOTRANSFERASE 12 U/L (9-52); ALBUMIN 4.4 g/dL (3.5-5.0); ALKALINE PHOSPHATASE 69 U/L (38-126); ANION GAP 10 (5-19); ASPARTATE AMINO TRANSFERASE 22 U/L (14-36); BILIRUBIN,DIRECT 0.2 mg/dL (0.0-0.4); BILIRUBIN,TOTAL 0.3 mg/dL (0.2-1.3); BLOOD UREA NITROGEN 8 mg/dL (7-20); CALCIUM 9.6 mg/dL (8.4-10.2); CARBON DIOXIDE 30 mmol/L (22-30); CHLORIDE 104 mmol/L (98-107); GLUCOSE 73 mg/dL (75-110); POTASSIUM 3.7 mmol/L (3.6-5.0); SODIUM 143.6 mmol/L (137-145); TOTAL PROTEIN 7.2 g/dL (6.3-8.2)
[2018-05-21 23:20] LABS: APPEARANCE,URINE CLOUDY; BILIRUBIN,URINE SMALL (NEGATIVE); CALCIUM OXALATE CRYSTALS,URINE TOO NUMEROUS TO CNT /HPF; COLOR,URINE YELLOW; GLUCOSE, URINE NEGATIVE (NEGATIVE); KETONES,URINE NEGATIVE (NEGATIVE); LEUKOCYTE ESTERASE,URINE NEGATIVE (NEGATIVE); NITRITE,URINE NEGATIVE (NEGATIVE); PROTEIN,URINE NEGATIVE (NEGATIVE); URINE SPECIFIC GRAVITY 1.028
[2018-05-21] MEDS ORDERED: HALOPERIDOL LACTATE INJ 5 MG/1 ML VIAL IV ONE (23:50)
[2018-05-21] MEDS ORDERED: LIDOCAINE 5% (700 MG) TRANSDERMAL ADH..PATCH TP ONE (23:50)
[2018-05-21] MEDS ORDERED: NORMAL SALINE 1000 ML 1,000 ML IV ONE (23:50)
[2018-05-21] MEDS ORDERED: KETOROLAC TROMETHAMINE INJ/PF 30 MG/1 ML SDV IV ONE (23:50)
--- NOTE | 2018-05-22 00:04 | ER Document Report ---
ED General - General Chief Complaint: Abdominal Pain Stated Complaint: ABDOMINAL PAIN Time Seen by Provider: 05/21/18 22:44 Notes: Patient is a 27-year-old female with past medical history of PTSD, depression, anxiety, presents with acute onset of right lower abdominal pain that started approximately 4 hours prior to presentation. Patient states that the pain started abruptly and has been relatively unchanged since that time. She states that it does come in waves, intermittently doubles her over. She denies associated vaginal bleeding or vaginal discharge. No dysuria. She has had one episode of associated vomiting. No diarrhea. No fever or constitutional symptoms. States that she has had similar symptoms multiple times in the past of unclear etiology. She has not contacted her general physician regarding today's concerns. TRAVEL OUTSIDE OF THE [place] IN LAST 30 DAYS: No - Related Data Allergies/Adverse Reactions: No Known Allergies Allergy (Verified 01/28/18 23:08) Past Medical History - General Information source: Patient - Social History Smoking Status: Never Smoker Frequency of alcohol use: None Drug Abuse: None Lives with: Family Family History: Reviewed & Not Pertinent Patient has suicidal ideation: No Patient has homicidal ideation: No Renal/ Medical History: Denies: Hx Peritoneal Dialysis Psychiatric Medical History: Reports: Hx Anxiety - Panic attacks, Hx Attention Deficit Hyperactivity Disorder, Hx Bipolar Disorder, Hx Depression Past Surgical History: Reports: Hx Oral Surgery - Immunizations Immunizations up to date: Yes Hx Diphtheria, Pertussis, Tetanus Vaccination: Yes Hx Pneumococcal Vaccination: 07/06/00 Review of Systems - Review of Systems Notes: Constitutional: Negative for fever. HENT: Negative for sore throat. Eyes: Negative for visual changes. Cardiovascular: Negative for chest pain. Respiratory: Negative for shortness of breath. Gastrointestinal: Positive for abdominal pain and vomiting Genitourinary: Negative for dysuria. Musculoskeletal: Negative for back pain. Skin: Negative for rash. Neurological: Negative for headaches, weakness or numbness. 10 point ROS negative except as marked above and in HPI. Physical Exam - Vital signs Vitals: Temp Pulse Resp BP Pulse Ox 98.5 F 84 18 134/93 H 98 05/21/18 22:34 05/21/18 22:34 05/21/18 22:34 05/21/18 22:34 05/21/18 22:34 Interpretation: Normal Notes: PHYSICAL EXAMINATION: GENERAL: Well-appearing, well-nourished and in no acute distress. HEAD: Atraumatic, normocephalic. EYES: Pupils equal round and reactive to light, extraocular movements intact, sclera anicteric, conjunctiva are normal. ENT: nares patent, oropharynx clear without exudates. Moist mucous membranes. NECK: Normal range of motion, supple without lymphadenopathy LUNGS: Breath sounds clear to auscultation bilaterally and equal. No wheezes rales or rhonchi. HEART: Regular rate and rhythm without murmurs ABDOMEN: Soft, mild focal right adnexal tenderness but otherwise nontender, normoactive bowel sounds. No guarding, no rebound. No masses appreciated. EXTREMITIES: Normal range of motion, no pitting or edema. No cyanosis. NEUROLOGICAL: No focal neurological deficits. Moves all extremities spontaneously and on command. PSYCH: Normal mood, normal affect. SKIN: Warm, Dry, normal turgor, no rashes or lesions noted. Course - Re-evaluation Re-evalutation: 05/22/18 00:02 Patient is a 27-year-old female who presents with complaints of acute onset of right lower abdominal pain. On exam she has mild tenderness to the right adnexa but the abdominal exam is otherwise completely benign. No focal tenderness of the right lower quadrant. History is not consistent with acute appendicitis as this was a very abrupt onset of and. She has no flank tenderness on exam or by history. Labs unremarkable. Vitals unremarkable. Urinalysis does note calcium oxalate crystals in the urine which could be secondary to dehydration versus a possible kidney stone as etiology of the patient's presentation although her clinical history is not consistent with an acute nephrolithiasis. The patient has had multiple episodes of recurrent pain of a similar fashion and has had recurrent ovarian cysts with rupture in the past. Ovarian torsion is on the differential although again seems unlikely given the patient's calm demeanor and well appearance on exam as well as normal vitals. Will obtain transvaginal ultrasound to further clarify and if this is unremarkable plan for likely discharge home. Will begin pain control here in the emergency department. 05/22/18 01:42 Patient is currently pain-free. Repeat abdominal exam without any focal abdominal tenderness. She feels much better. Transvaginal ultrasound unremarkable although unable to fully visualize the right ovary. Trace free fluid which is either physiologic or would suggest a ruptured ovarian cyst which would fit clinically with the patient's picture. At this time will discharge with return precautions and follow-up recommendations. Verbal discharge instructions given a the bedside and opportunity for questions given. Medication warnings reviewed. Patient is in agreement with this plan and has verbalized understanding of return precautions and the need for primary care follow-up in the next 24-72 hours. - Vital Signs Vital signs: Temp Pulse Resp BP Pulse Ox 98.5 F 84 18 134/93 H 98 05/21/18 22:34 05/21/18 22:34 05/21/18 22:34 05/21/18 22:34 05/21/18 22:34 - Laboratory Result Diagrams: 05/21/18 22:50 05/21/18 22:50 Laboratory results interpreted by me: 05/21/18 05/21/18 05/21/18 22:50 22:50 23:00 RBC 3.63 L Hct 34.7 L MCH 33.6 H Glucose 73 L Urine Bilirubin SMALL H Urine Urobilinogen 4.0 H - Diagnostic Test Radiology reviewed: Reports reviewed Discharge - Discharge Clinical Impression: Right lower quadrant abdominal pain Nausea and vomiting Qualifiers: Vomiting type: unspecified Vomiting Intractability: non-intractable Qualified Code(s): R11.2 - Nausea with vomiting, unspecified Condition: Good Disposition: HOME, SELF-CARE Additional Instructions: You have been seen in the Emergency Department (ED) for abdominal pain. Your evaluation did not identify a clear cause of your symptoms but was generally reassuring. Please follow up with your doctor as soon as possible regarding today's emergent visit and the symptoms that are bothering you. Return to the ED if your abdominal pain worsens or fails to improve, you develop bloody vomiting, bloody diarrhea, you are unable to tolerate fluids due to vomiting, fever greater than 101, or other symptoms that concern you. Referrals: ALISA OVERTON MD [Primary Care Provider] - Follow up as needed
--- NOTE | 2018-05-22 01:23 | RADIOLOGY REPORT (SQ) ---
EXAM DESCRIPTION: US TRANSVAGINAL COMPLETED DATE/TME: 05/21/2018 23:50 CLINICAL HISTORY: 27 years, Female, right adnexal pain COMPARISON: Prior ultrasound 03/25/2017. TECHNIQUE: Transverse and longitudinal transvaginal sonographic images of the pelvis LIMITATIONS: None. FINDINGS: The uterus measures 7.1 x 4.3 x 5.1 cm. Endometrium measures 8 mm in thickness. The myometrium is homogenous. The right ovary is not well seen likely due to its position in the pelvis. The left ovary measures 3.7 x 1.6 x 3.0 cm. Left ovarian follicles are present. No solid adnexal mass. Doppler and spectral analysis with color flow was utilized. Arterial and venous flow to left ovary. Small amount of free fluid which is likely physiologic. IMPRESSION: The right ovary is not well seen likely due to its position in the pelvis. Small amount of free fluid which is likely physiologic 2010 [employer]- All Rights Reserved
[2018-05-22 01:56] VITALS: BP 107/53
== END 2018-05-22 01:55 | disposition home or self-care (01) ==
LOC: ER 22:34
DX: R10.31 Right lower quadrant pain (principal); R11.2 Nausea with vomiting, unspecified; R82.998 Other abnormal findings in urine
CPT/HCPCS: 99284; 96361; 96374; 96375; 36415; 84703; 85025; 80053; 81001; 76830; 93976; J1630; J1885; J7030

== ENCOUNTER 2018-07-02 20:38 | Emergency (ER) | payer BC ==
[2018-07-02] MEDS ORDERED: NORMAL SALINE 1000 ML 500 ML IV ONE (21:19)
[2018-07-02] MEDS ORDERED: MECLIZINE HCL 25 MG TABLET PO ONE (21:21)
--- NOTE | 2018-07-02 21:24 | ER Document Report ---
ED General - General Chief Complaint: Near Syncope Stated Complaint: DIZZINESS Time Seen by Provider: 07/02/18 21:13 Notes: Patient is a 28-year-old female that comes to the emergency department for chief complaint of feeling weak and lightheaded. She states when she stands up she feels dizzy as if the world is spinning around her and she feels lightheaded. She states she started feeling this way this evening, she denies headache, fever, chest pain, shortness of breath, palpitations, or any other symptoms. Past medical history PTSD, depression, anxiety. Denies smoking, recreational drugs. Reports rare alcohol use, none tonight. LMP within the past month. TRAVEL OUTSIDE OF THE [place] IN LAST 30 DAYS: No - Related Data Allergies/Adverse Reactions: No Known Allergies Allergy (Verified 07/02/18 21:00) Past Medical History - General Information source: Patient - Social History Smoking Status: Never Smoker Frequency of alcohol use: None Drug Abuse: None Lives with: Family Family History: Reviewed & Not Pertinent Renal/ Medical History: Denies: Hx Peritoneal Dialysis Psychiatric Medical History: Reports: Hx Anxiety - Panic attacks, Hx Attention Deficit Hyperactivity Disorder, Hx Bipolar Disorder, Hx Depression Past Surgical History: Reports: Hx Oral Surgery - Immunizations Immunizations up to date: Yes Hx Diphtheria, Pertussis, Tetanus Vaccination: Yes Hx Pneumococcal Vaccination: 07/06/00 Review of Systems - Review of Systems Constitutional: See HPI EENT: No symptoms reported Cardiovascular: No symptoms reported Respiratory: No symptoms reported Gastrointestinal: No symptoms reported Genitourinary: No symptoms reported Female Genitourinary: No symptoms reported Musculoskeletal: No symptoms reported Skin: No symptoms reported Hematologic/Lymphatic: No symptoms reported Neurological/Psychological: See HPI Physical Exam - Vital signs Vitals: Temp Pulse Resp BP Pulse Ox 98.3 F 89 14 135/94 H 100 07/02/18 21:01 07/02/18 21:01 07/02/18 21:01 07/02/18 21:01 07/02/18 21:01 - Notes Notes: GENERAL: Alert, interacts well. No acute distress. HEAD: Normocephalic, atraumatic. EYES: Pupils equal, round, and reactive to light. Extraocular movements intact. ENT: Oral mucosa moist, tongue midline. Oropharynx unremarkable. Airway patent. Nares patent, no nasal septal hematoma, TM's intact. NECK: Full range of motion. Supple. Trachea midline. LUNGS: Clear to auscultation bilaterally, no wheezes, rales, or rhonchi. No respiratory distress. HEART: Regular rate and rhythm. No murmur ABDOMEN: Soft, non-tender. Non-distended. Bowel sounds present in all 4 quadrants. GENITOURINARY: Deferred EXTREMITIES: Moves all 4 extremities spontaneously. No edema, normal radial and dorsalis pedis pulses bilaterally. No cyanosis. BACK: no cervical, thoracic, lumbar midline tenderness. No saddle anesthesia, normal distal neurovascular exam. NEUROLOGICAL: Alert and oriented x3. Normal speech. [cranial nerves II through XII grossly intact]. PSYCH: Slightly flat affect but no operative and responds appropriately SKIN: Warm, dry, normal turgor. No rashes or lesions noted. Course - Re-evaluation Re-evalutation: Patient reportedly was lying down in the lobby as if she had passed out. When asked she was able to get up and walk to the wheelchair and she was subsequently brought to the room. On my evaluation she is cooperative although vague with her symptoms unless pressed. She is very well-appearing and does not appear to be in any distress. Vital signs are unremarkable. Physical exam is unremarkable including neurological exam. No noted ataxia, imbalance, or nystagmus. CBC, chemistry, urine, test all unremarkable. EKG is unremarkable with normal sinus rhythm and normal AR interval and QTc. On reevaluation patient is unchanged in appearance and states she feels much better after IV fluids and meclizine. I discussed her workup. Because of her generalized malaise and body aches I do suspect a viral illness. She also describes symptoms of vertigo. She will be treated accordingly. Discussed expectations, follow-up, and return precautions with patient. Patient states satisfaction and agreement. - Vital Signs Vital signs: Temp Pulse Resp BP Pulse Ox 98.3 F 89 14 135/94 H 100 07/02/18 21:01 07/02/18 21:01 07/02/18 21:01 07/02/18 21:01 07/02/18 21:01 - Laboratory Result Diagrams: 07/02/18 21:50 07/02/18 21:50 Laboratory results interpreted by me: 07/02/18 07/02/18 07/02/18 21:50 21:50 21:50 RBC 3.66 L Hct 35.1 L MCH 34.2 H BUN 6 L Urine Urobilinogen 4.0 H Discharge - Discharge Clinical Impression: Dizziness, Body aches, Weakness Condition: Stable Disposition: HOME, SELF-CARE Additional Instructions: Your workup is reassuring. Your evaluation is most suggestive of labyrinthitis which is giving you vertigo symptoms. I recommend that you rest, drink plenty of fluids, take [id number] ibuprofen or Tylenol for body aches, take the prescribed meclizine for the dizziness symptoms. Symptoms should resolve with time. Return if you worsen including fevers, vomiting, severe headache, or any other concerning or worsening symptoms. Prescriptions: Meclizine HCl [Antivert 25 mg Tablet] 25 mg PO TID PRN #21 tablet PRN Reason: Referrals: ALISA OVERTON MD [Primary Care Provider] - Follow up as needed
[2018-07-02 22:22] LABS: ABSOLUTE EOSINOPHILS # (AUTO) 0.3 10^3/uL (0.0-0.6); ABSOLUTE LYMPHOCYTES (AUTO) 1.6 10^3/uL (0.5-4.7); ABSOLUTE MONOCYTES (AUTO) 0.3 10^3/uL (0.1-1.4); ABSOLUTE NEUT (AUTO) 2.8 10^3/uL (1.7-8.2); BASOPHILS % (AUTO) 0.8 % (0-2); EOSINOPHILS % (AUTO) 5.8 % (0-6); HEMATOCRIT 35.1 % (36.0-47.0); HEMOGLOBIN 12.5 g/dL (12.0-15.5); LYMPHOCYTES % (AUTO) 32.8 % (13-45); MEAN CORPUSCULAR HEMOGLOBIN 34.2 pg (27.0-33.4); MEAN CORPUSCULAR HGB CONC 35.7 g/dL (32.0-36.0); MEAN CORPUSCULAR VOLUME 96 fl (80-97); PLATELET COUNT 219 10^3/uL (150-450); RED BLOOD COUNT 3.66 10^6/uL (3.72-5.28); RED CELL DISTRIBUTION WIDTH 12.3 % (11.5-14.0); SEGMENTED NEUTROPHILS % (AUTO) 55.6 % (42-78); TOTAL CELLS COUNTED % (AUTO) 100 %
[2018-07-02 22:27] LABS: APPEARANCE,URINE SLIGHTLY-CLOUDY; BILIRUBIN,URINE NEGATIVE (NEGATIVE); COLOR,URINE YELLOW; GLUCOSE, URINE NEGATIVE (NEGATIVE); KETONES,URINE NEGATIVE (NEGATIVE); LEUKOCYTE ESTERASE,URINE NEGATIVE (NEGATIVE); NITRITE,URINE NEGATIVE (NEGATIVE); PROTEIN,URINE NEGATIVE (NEGATIVE); URINE SPECIFIC GRAVITY 1.017
[2018-07-02 22:31] LABS: ANION GAP 6 (5-19); BLOOD UREA NITROGEN 6 mg/dL (7-20); CALCIUM 9.4 mg/dL (8.4-10.2); CARBON DIOXIDE 27 mmol/L (22-30); CHLORIDE 105 mmol/L (98-107); GLUCOSE 95 mg/dL (75-110); POTASSIUM 4.2 mmol/L (3.6-5.0); SODIUM 138.3 mmol/L (137-145)
[2018-07-03 01:46] VITALS: BP 126/66
--- NOTE | 2018-07-03 12:58 | EKG REPORT ---
SEVERITY:- NORMAL ECG - SINUS RHYTHM : Confirmed by: Bunny Rivera 03-Jul-2018 12:57:41
== END 2018-07-03 | disposition home or self-care (01) ==
LOC: ER 20:38
DX: R55 Syncope and collapse (principal); R42 Dizziness and giddiness; R53.1 Weakness; M79.10 Myalgia, unspecified site
CPT/HCPCS: 36415; 80048; 81001; 81025; 85025; 93005; 93010; 99284

== ENCOUNTER 2018-10-12 19:27 | Emergency (ER) | payer BC ==
--- NOTE | 2018-10-12 20:43 | RADIOLOGY REPORT (SQ) ---
EXAM DESCRIPTION: XR ELBOW 3 VIEWS COMPLETED DATE/TME: 10/12/2018 19:39 CLINICAL HISTORY: 28 years, Female, L elbow pain and injury COMPARISON: None. NUMBER OF VIEWS: Four TECHNIQUE: Frontal, lateral, and oblique radiographs of the left elbow were obtained. LIMITATIONS: None. FINDINGS: Visualized is remote appearing deformity involving the radial head. Otherwise, remaining visualized osseous structures appear normal without acute fracture or dislocation. No significant elbow joint effusion. IMPRESSION: No definite acute osseous anomaly. copyright 2010 [employer]- All Rights Reserved
[2018-10-12] MEDS ORDERED: ACETAMINOPHEN 325 MG TABLET PO ONE (22:41)
--- NOTE | 2018-10-12 22:44 | ER Document Report ---
HPI - HPI Patient complains to provider of: Left elbow pain Time Seen by Provider: 10/12/18 21:23 Pain Level: 4 Context: Patient is a 28-year-old female presents to the emergency department for left elbow pain. 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 States she was cleaning the bathroom when she had her left elbow on the toilet paper figueroa. Patient states she immediately felt pain and presents to the emergency room. Patient denies any numbness or tingling in any extremity at this time. Past medical history: Anxiety, depression Medications: Cymbalta, Abilify Allergies: None - REPRODUCTIVE Reproductive: DENIES: : - MUSCULOSKELETAL Musculoskeletal: REPORTS: Extremity pain Past Medical History - General Information source: Patient - Social History Smoking Status: Unknown if Ever Smoked Family History: Reviewed & Not Pertinent Patient has suicidal ideation: No Patient has homicidal ideation: No Renal/ Medical History: Denies: Hx Peritoneal Dialysis Psychiatric Medical History: Reports: Hx Anxiety - Panic attacks, Hx Attention Deficit Hyperactivity Disorder, Hx Bipolar Disorder, Hx Depression Past Surgical History: Reports: Hx Oral Surgery - Immunizations Immunizations up to date: Yes Hx Diphtheria, Pertussis, Tetanus Vaccination: Yes Hx Pneumococcal Vaccination: 07/06/00 Vertical Provider Document - CONSTITUTIONAL Agree With Documented VS: Yes Notes: GENERAL: Alert, interacts well. No acute distress. HEAD: Normocephalic, atraumatic. EYES: Pupils equal, round, and reactive to light. Extraocular movements intact. ENT: Oral mucosa moist, tongue midline. NECK: Full range of motion. Supple. Trachea midline. LUNGS: Clear to auscultation bilaterally, no wheezes, rales, or rhonchi. No respiratory distress. HEART: Regular rate and rhythm. No murmur ABDOMEN: Soft, non-tender. Non-distended. Bowel sounds present in all 4 quadrants. EXTREMITIES: Moves all 4 extremities spontaneously. No edema, normal radial and dorsalis pedis pulses bilaterally. No cyanosis. Patient has pain over the left lateral epicondyle. Patient is full range of motion of the left elbow including supination and pronation. Patient states she just has pain. BACK: no cervical, thoracic, lumbar midline tenderness. No saddle anesthesia, normal distal neurovascular exam. NEUROLOGICAL: Alert and oriented x3. Normal speech. cranial nerves II through XII grossly intact PSYCH: Normal affect, normal mood. SKIN: Warm, dry, normal turgor. No rashes or lesions noted. - INFECTION CONTROL TRAVEL OUTSIDE OF THE [place] IN LAST 30 DAYS: No Course - Re-evaluation Re-evalutation: 10/12/18 22:43 X-rays reveal no signs of abnormalities. Discussed this with patient at length at bedside. Discussed use of Tylenol Motrin and ice. Patient stable for discharge. - Vital Signs Vital signs: Temp Pulse Resp BP Pulse Ox 98 F 83 18 144/81 H 100 10/12/18 22:09 10/12/18 22:09 10/12/18 22:09 10/12/18 22:09 10/12/18 22:09 Discharge - Discharge Clinical Impression: Injury of left elbow Qualifiers: Encounter type: initial encounter Qualified Code(s): S59.902A - Unspecified injury of left elbow, initial encounter Condition: Stable Disposition: HOME, SELF-CARE Additional Instructions: You have been seen and treated in the emergency department for an injury to your left elbow. Please make sure you are applying ice on for 20 minutes off for 20 minutes. Please also make sure you are taking [id number] Tylenol and Motrin for generalized pain. Although it may hurt you want to move the elbow as much as possible. Please also follow-up with your primary care provider in the next 24-48 hours. Please return to the emergency room for any other concerning symptoms. Forms: Return to Work Referrals: ALISA OVERTON MD [Primary Care Provider] - Follow up as needed
[2018-10-12 22:49] VITALS: BP 131/86
== END 2018-10-12 22:48 | disposition home or self-care (01) ==
LOC: ER 19:27
DX: S59.902A Unspecified injury of left elbow, initial encounter (principal); F41.9 Anxiety disorder, unspecified; W22.09XA Striking against other stationary object, initial encounter; Y93.E9 Activity, other interior property and clothing maintenance
CPT/HCPCS: 99283

== ENCOUNTER 2019-01-15 23:15 | Emergency (ER) | payer BC ==
[2019-01-16] MEDS ORDERED: DIPHENHYDRAMINE HCL 50 MG/ML VIAL IV ONE (03:07)
[2019-01-16] MEDS ORDERED: NORMAL SALINE 1000 ML 1,000 ML IV ONE (03:07)
[2019-01-16] MEDS ORDERED: PROCHLORPERAZINE EDISYLATE INJ 10 MG/2 ML VIAL IV ONE (03:07)
[2019-01-16] MEDS ORDERED: KETOROLAC TROMETHAMINE INJ/PF 30 MG/1 ML SDV IV ONE (03:07)
--- NOTE | 2019-01-16 03:08 | ER Document Report ---
ED Headache - General Chief Complaint: Headache Stated Complaint: HEADACHE Time Seen by Provider: 01/16/19 03:00 Primary Care Provider: MIRA CHRISTINA PA [Primary Care Provider] - Follow up as needed Mode of Arrival: Ambulatory Information source: Patient Notes: Patient is an otherwise healthy 28-year-old female presented to the emergency department chief complaint of headache. Patient reports approximately 6 PM she began having a generalized headache. She reports it was a gradual onset. Patient reports headache has come and gone intermittently. She denies any fever, recent illness or neck pain. She does report she has had headaches in the past, no diagnosis of migraines. TRAVEL OUTSIDE OF THE [place] IN LAST 30 DAYS: No - Related Data Allergies/Adverse Reactions: No Known Allergies Allergy (Verified 10/12/18 19:34) Past Medical History - Social History Smoking Status: Current Every Day Smoker Chew tobacco use (# tins/day): No Frequency of alcohol use: None Drug Abuse: None Family History: Reviewed & Not Pertinent Patient has suicidal ideation: No Patient has homicidal ideation: No Renal/ Medical History: Denies: Hx Peritoneal Dialysis Psychiatric Medical History: Reports: Hx Anxiety - Panic attacks, Hx Attention Deficit Hyperactivity Disorder, Hx Bipolar Disorder, Hx Depression Past Surgical History: Reports: Hx Oral Surgery - Immunizations Immunizations up to date: Yes Hx Diphtheria, Pertussis, Tetanus Vaccination: Yes Hx Pneumococcal Vaccination: 07/06/00 Physical Exam - Vital signs Vitals: Temp Pulse Resp BP Pulse Ox 98.3 F 78 16 129/87 H 99 01/15/19 23:52 01/15/19 23:52 01/15/19 23:52 01/15/19 23:52 01/15/19 23:52 - Notes Notes: PHYSICAL EXAMINATION: GENERAL: Well-appearing, well-nourished and in no acute distress. HEAD: Atraumatic, normocephalic. EYES: Pupils equal round and reactive to light, extraocular movements intact, conjunctiva are normal. ENT: Nares patent, oropharynx clear without exudates. Moist mucous membranes. NECK: Normal range of motion, supple without lymphadenopathy LUNGS: Breath sounds clear to auscultation bilaterally and equal. No wheezes rales or rhonchi. HEART: Regular rate and rhythm without murmurs ABDOMEN: Soft, nontender, nondistended abdomen. No guarding, no rebound. No masses appreciated. Female : deferred Musculoskeletal: Normal range of motion, no pitting or edema. No cyanosis. NEUROLOGICAL: Cranial nerves grossly intact. Normal speech, normal gait. Normal sensory, motor exams PSYCH: Normal mood, normal affect. SKIN: Warm, Dry, normal turgor, no rashes or lesions noted. Course - Re-evaluation Re-evalutation: Patient appears well, nontoxic and all vital signs are within normal limits. Physical examination is unremarkable. She has no focal neurological deficits. She has no nuchal rigidity. Patient was given migraine cocktail here in the emergency department and had complete resolution of her symptoms. Patient will be discharged home in stable condition with ED return precautions. The patient's emergency department workup and current diagnosis were explained to the patient and or family. Follow-up instructions were provided. Medications if prescribed were discussed. Instructions for when to return to the emergency department including specific worrisome symptoms were discussed with the patient and/or family. - Vital Signs Vital signs: Temp Pulse Resp BP Pulse Ox 97.8 F 89 16 114/80 100 01/16/19 05:01 01/16/19 05:01 01/16/19 05:01 01/16/19 05:01 01/16/19 05:01 Discharge - Discharge Clinical Impression: Migraine headache Qualifiers: Migraine type: unspecified Status migrainosus presence: without status migrainosus Intractability: not intractable Qualified Code(s): G43.909 - Migraine, unspecified, not intractable, without status migrainosus Condition: Stable Disposition: HOME, SELF-CARE Additional Instructions: You were seen today for a migraine headache. Please follow-up with your primary care doctor regarding today's ED visit. Return to emergency department i mmediately if you develop a headache that gets to its maximum severity within 20 minutes of onset, you pass out, you develop weakness, numbness, changes in your vision, become unable to keep any fluids down for more than 12 hours, or develop a fever greater than 100.4 degrees Fahrenheit. If you develop a similar migraine headache in the future I recommend that you immediately take 600 mg of ibuprofen and 50 mg of Benadryl and go to sleep as quickly as possible. This can often prevent your migraine headache from becoming severe. Forms: Return to Work Referrals: CARRI,MIRA, PA [Primary Care Provider] - Follow up as needed
[2019-01-16 05:02] VITALS: BP 114/80
== END 2019-01-16 05:46 | disposition home or self-care (01) ==
LOC: ER 23:15
DX: G43.909 Migraine, unspecified, not intractable, without status migrainosus (principal); F17.200 Nicotine dependence, unspecified, uncomplicated
CPT/HCPCS: 99283; 96361; 96374; 96375; J1200; J1885; J0780; J7030

== ENCOUNTER 2019-01-26 00:01 | Emergency (ER) | payer BC ==
[2019-01-26 01:05] VITALS: BP 141/99
== END 2019-01-26 04:49 | disposition left against medical advice (07) ==
LOC: ER 00:01
DX: Z53.21 Procedure and treatment not carried out due to patient leaving prior to being seen by health care provider (principal)

== ENCOUNTER 2019-12-17 19:26 | Emergency (ER) | payer BC, OTHER ==
[2019-12-17] MEDS ORDERED: IBUPROFEN 600 MG TABLET PO ONE (20:03)
--- NOTE | 2019-12-17 20:05 | ER Document Report ---
ED Extremity Problem, Lower - General Chief Complaint: Ankle Injury Stated Complaint: ANKLE PAIN Time Seen by Provider: 12/17/19 19:57 Primary Care Provider: [facility] [Provider Group] - Follow up as needed ALISA OVERTON MD [Primary Care Provider] - Follow up as needed Mode of Arrival: Medic Information source: Patient Notes: 49-year-old female presented to ED for complaint of pain to the left foot and ankle. She states she was asleep and dreaming when she kicked a wall 3 times. She states that third time she woke up and her foot popped. She states her foot has been painful and swollen since then. She states she has a medical history of bipolar anxiety and depression. She states she does not smoke drink or use any drugs. She states she does not have a history of any surgeries. She is alert oriented respirations regular and unlabored speaking in full sentences. She did come in by EMS. TRAVEL OUTSIDE OF THE [place] IN LAST 30 DAYS: No - HPI Patient complains to provider of: Injury, Pain Location: Ankle, Foot Occurred: Just prior to arrival Where: Home, Indoors Onset/Duration: Sudden Quality of pain: Sharp, Throbbing Severity: Moderate Pain Level: 4 Context: Barefoot, Other - Kicked the wall Recent injury: Possibly Associated symptoms: Painful ambulation Exacerbated by: Hanging down, Movement, Walking Relieved by: Nothing - Related Data Allergies/Adverse Reactions: No Known Allergies Allergy (Verified 10/12/18 19:34) Past Medical History - General Information source: Patient - Social History Smoking Status: Never Smoker Frequency of alcohol use: None Drug Abuse: None Lives with: Alone Family History: Reviewed & Not Pertinent Patient has suicidal ideation: Yes Patient has homicidal ideation: Yes Renal/ Medical History: Denies: Hx Peritoneal Dialysis Psychiatric Medical History: Reports: Hx Anxiety - Panic attacks, Hx Attention Deficit Hyperactivity Disorder, Hx Bipolar Disorder, Hx Depression Past Surgical History: Reports: Hx Oral Surgery - Immunizations Immunizations up to date: Yes Hx Diphtheria, Pertussis, Tetanus Vaccination: Yes Hx Pneumococcal Vaccination: 07/06/00 Review of Systems - Review of Systems Constitutional: No symptoms reported EENT: No symptoms reported Cardiovascular: No symptoms reported Respiratory: No symptoms reported Gastrointestinal: No symptoms reported Genitourinary: No symptoms reported Female Genitourinary: No symptoms reported Musculoskeletal: Other - Pain to left ankle and foot Skin: No symptoms reported Hematologic/Lymphatic: No symptoms reported Neurological/Psychological: No symptoms reported -: Yes All other systems reviewed and negative Physical Exam - Vital signs Vitals: Temp Pulse Resp BP Pulse Ox 98.1 F 92 16 142/98 H 97 12/17/19 19:34 12/17/19 19:34 12/17/19 19:34 12/17/19 19:34 12/17/19 19:34 Interpretation: Normal - General General appearance: Appears well, Alert - HEENT Head: Normocephalic, Atraumatic Eyes: Normal Pupils: PERRL - Respiratory Respiratory status: No respiratory distress Chest status: Nontender Breath sounds: Normal Chest palpation: Normal - Cardiovascular Rhythm: Regular Heart sounds: Normal auscultation Murmur: No - Abdominal Inspection: Normal Distension: No distension Bowel sounds: Normal Tenderness: Nontender Organomegaly: No organomegaly - Back Back: Normal, Nontender - Extremities General upper extremity: Normal inspection, Nontender, Normal color, Normal ROM, Normal temperature General lower extremity: Normal inspection, Normal color, Normal temperature, Normal weight bearing. No: Janet's sign Ankle: Tender, Limited ROM, Unable to bear weight. No: Abrasion, Deformity, Ecchymosis, Edema, Instability, Laceration - Due to pain, Positive Carranza's test Foot: Tender, No evidence of FB, Unable to bear weight. No: Edema, Instability, Laceration, Metatarsal compress. pain, Nail injury, Navicular tenderness, Puncture wound, Tender 5th metatarsal - Neurological Neuro grossly intact: Yes Cognition: Normal Orientation: AAOx4 [place] Coma Scale Eye Opening: Spontaneous [place] Coma Scale Verbal: Oriented [place] Coma Scale Motor: Obeys Commands [place] Coma Scale Total: 15 Speech: Normal Motor strength normal: LUE, RUE, LLE, RLE Sensory: Normal - Psychological Associated symptoms: Normal affect, Normal mood - Skin Skin Temperature: Warm Skin Moisture: Dry Skin Color: Normal Course - Re-evaluation Re-evalutation: 12/17/19 21:36 There are no acute injuries noted on x-ray. These x-rays were discussed with patient. Written report of x-rays were given to patient. Patient was treated with an Philippe wrap and instructed to use a firm shoe until she follows up with orthopedics. She was given the name and number of orthopedics to follow-up with. Patient was given traction on exercises for the ankle. She was given instructions on elevation and ice to the ankle and instructions to follow-up with orthopedics and her primary care doctor. Verbalized understanding agreement treatment plan patient was discharged home. - Vital Signs Vital signs: Temp Pulse Resp BP Pulse Ox 98.1 F 83 18 132/83 H 100 12/17/19 21:28 12/17/19 21:28 12/17/19 21:28 12/17/19 21:28 12/17/19 21:28 - Diagnostic Test Radiology reviewed: Image reviewed, Reports reviewed Discharge - Discharge Clinical Impression: Contusion of left ankle, initial encounter Contusion of left foot Qualifiers: Encounter type: initial encounter Qualified Code(s): S90.32XA - Contusion of left foot, initial encounter Condition: Stable Disposition: HOME, SELF-CARE Additional Instructions: CONTUSION: Your injury has resulted in a contusion -- a crushing of the deep tissues. No injury to important structures was detected during the physician's exam. Contusions vary in the amount of pain they cause, and in the length of time required for healing. Typically, the area will become bruised, and will remain painful to touch for two or three weeks. However, most patients are back to working and playing within a few days. After the initial period of rest and cold-packs, your symptoms (together with the doctor's recommendations) will determine how rapidly you can get back to full activity. Usually this means "do what feels okay, but don't do things that hurt." If re-examination was recommended, it's important to follow up as instru cted. Call the doctor or return any time if pain increases, if swelling becomes severe, if you develop numbness or weakness in an injured extremity, or if any other alarming symptoms occur. USE OF TYLENOL (ACETAMINOPHEN): Acetaminophen may be taken for pain relief or fever control. It's much safer than aspirin, offering a wider range of "safe" dosages. It is safe during . Some brand names are Tylenol, Panadol, Datril, Anacin 3, Tempra, and Liquiprin. Acetaminophen can be repeated every four hours. The following are maximum recommended dosages: WEIGHT Dose Drops Elixir Chewable(80mg) (LBS.) drprs=droppers tsp=teaspoon 6 40 mg 0.4 ml (1/2) 6-11 80 mg 0.8 ml (full) tsp 1 tab 12-16 120 mg 1 1/2 drprs 3/4 tsp 1 1/2 tabs 17-23 160 mg 2 drprs 1 tsp 2 tabs 24-30 240 mg 3 drprs 1 1/2 tsp 3 tabs 30-35 320 mg 2 tsp 4 tabs 36-41 360 mg 2 1/4 tsp 4 1/2 tabs 42-47 400 mg 2 1/2 tsp 5 tabs 48-53 480 mg 3 tsp 6 tabs 54-59 520 mg 3 1/4 tsp 6 1/2 tabs 60-64 560 mg 3 1/2 tsp 7 tabs 65-70 600 mg 3 3/4 tsp 7 1/2 tabs 71-76 640 mg 4 tsp 8 tabs 77-82 720 mg 4 1/2 tsp 9 tabs 83-88 800 mg 5 tsp 10 tabs >89 pounds or adults 650 mg to 900 mg Acetaminophen can be repeated every four hours. Maximum dose not to exceed 4000 mg a day. These maximum recommended dosages are slightly higher than the dosages written on the product container, but these dosages are very safe and below the toxic dosage for acetaminophen. PHILIPPE WRAP: A compression dressing (philippe wrap) has been placed. This helps hold the area still. It limits swelling and internal bleeding. The wrap should be comfortably snug -- not tight. You should feel a sense of pressure, but not severe pain under the wrap. Unless the physician tells you otherwise, you can adjust the wrap for comfort. If the wrap causes symptoms suggesting it's too tight -- uncomfortable pressure, swelling or discoloration beyond the wrap, numbness, or severe pain -- you must loosen the wrap. If these symptoms don't resolve promptly, return for re-evaluation. ICE & ELEVATION: Apply ice packs frequently against the painful area. Many different schedules are recommended, such as "20 minutes on, 20 minutes off" or "one hour ice, two hours rest." If you need to work, you may need to go longer between ice treatments. You should plan to have the area ice packed AT LEAST one-fourth of the time. The ice should be applied over the wrap, tape, or splint, or over a layer of cloth -- not directly against the skin. Some ice bags have a built-in cloth and can be put directly on the skin. Your injured part should be elevated as much as possible over the next 48 hours. Try to keep the injury above the level of the heart. Avoid use of the injured area. Elevation and rest will decrease the swelling. USE OF [id number] IBUPROFEN: Ibuprofen (Advil, Nuprin, Medipren, Motrin IB) is a medication for fever and pain control. In addition, it has anti- inflammatory effects which may be beneficial, especially in the treatment of injuries. It's best to take ibuprofen with food. Persons with ulcer disease or allergy to aspirin should notify their physician of this before taking ibuprofen. Ibuprofen can be given every four to six hours, for a total of four doses daily. Age Pain or fever dose Antiinflammatory dose 6-8 yr 200 mg (1 tab) 200 mg (1 tab) 9-11 yr 200 mg (1 tab) 200-400 mg (1-2 tab) 11-14 yr 200-400 mg (1-2 tab) 400 mg (2 tab) 15-adult 400 mg (2 tab) 600 mg (3 tab) FOLLOW-UP CARE: If you have been referred to a physician for follow-up care, call the physicians office for an appointment as you were instructed or within the next two days. If you experience worsening or a significant change in your symptoms, notify the physician immediately or return to the Emergency Department at any time for re-evaluation. Forms: Elevated Blood Pressure Referrals: ALISA OVERTON MD [Primary Care Provider] - Follow up as needed [facility] [Provider Group] - Follow up as needed
--- NOTE | 2019-12-17 20:57 | RADIOLOGY REPORT (SQ) ---
EXAM DESCRIPTION: X-ray, three views of the left foot CLINICAL HISTORY: 29 years Female, kicked wall in sleep pain and swelling COMPARISON: None. FINDINGS: Bone mineralization is normal. Alignment is anatomic. No erosions or periostitis. No fracture. Soft tissues are unremarkable. IMPRESSION: Unremarkable radiographs of the left foot. No acute process.
--- NOTE | 2019-12-17 20:59 | RADIOLOGY REPORT (SQ) ---
EXAM DESCRIPTION: X-ray, three views of the left ankle CLINICAL HISTORY: 29 years Female, kicked wall in sleep pain and swelling COMPARISON: None. FINDINGS: Soft tissues are unremarkable. Alignment of the ankle is anatomic. Bone mineralization is normal. No fracture. No erosions or periostitis. IMPRESSION: Normal radiographs of the left ankle.
[2019-12-17 21:30] VITALS: BP 132/83
== END 2019-12-17 21:34 | disposition home or self-care (01) ==
LOC: ER 19:26
DX: S90.02XA Contusion of left ankle, initial encounter (principal); S90.32XA Contusion of left foot, initial encounter; W22.01XA Walked into wall, initial encounter; Y93.84 Activity, sleeping; Y92.009 Unspecified place in unspecified non-institutional (private) residence as the place of occurrence of the external cause
CPT/HCPCS: 99283

== ENCOUNTER 2019-12-28 23:33 | Emergency (ER) | payer OTHER ==
[2019-12-29 00:11] LABS: ABSOLUTE EOSINOPHILS # (AUTO) 0.2 10^3/uL (0.0-0.6); ABSOLUTE LYMPHOCYTES (AUTO) 1.7 10^3/uL (0.5-4.7); ABSOLUTE MONOCYTES (AUTO) 0.5 10^3/uL (0.1-1.4); ABSOLUTE NEUT (AUTO) 4.9 10^3/uL (1.7-8.2); BASOPHILS % (AUTO) 0.6 % (0-2); EOSINOPHILS % (AUTO) 2.2 % (0-6); HEMATOCRIT 35.6 % (36.0-47.0); HEMOGLOBIN 12.6 g/dL (12.0-15.5); LYMPHOCYTES % (AUTO) 23.6 % (13-45); MEAN CORPUSCULAR HEMOGLOBIN 33.2 pg (27.0-33.4); MEAN CORPUSCULAR HGB CONC 35.3 g/dL (32.0-36.0); MEAN CORPUSCULAR VOLUME 94 fl (80-97); MONOCYTES % (AUTO) 6.5 % (3-13); PLATELET COUNT 262 10^3/uL (150-450); RED BLOOD COUNT 3.79 10^6/uL (3.72-5.28); RED CELL DISTRIBUTION WIDTH 12.5 % (11.5-14.0); SEGMENTED NEUTROPHILS % (AUTO) 67.1 % (42-78); TOTAL CELLS COUNTED % (AUTO) 100 %; WHITE BLOOD COUNT 7.2 10^3/uL (4.0-10.5)
[2019-12-29 00:20] LABS: ALBUMIN 4.7 g/dL (3.5-5.0); ALKALINE PHOSPHATASE 78 U/L (38-126); ANION GAP 7 (5-19); ASPARTATE AMINO TRANSFERASE 26 U/L (14-36); BILIRUBIN,TOTAL 0.6 mg/dL (0.2-1.3); BLOOD UREA NITROGEN 10 mg/dL (7-20); CARBON DIOXIDE 29 mmol/L (22-30); CHLORIDE 101 mmol/L (98-107); GLUCOSE 96 mg/dL (75-110); POTASSIUM 4.6 mmol/L (3.6-5.0)
[2019-12-29 00:21] LABS: ACETAMINOPHEN < 10 ug/mL (10-30); ALCOHOL < 10 mg/dL (NONE DETECTED); SALICYLATE < 1.0 mg/dL (2.0-20.0)
--- NOTE | 2019-12-29 00:45 | ER Document Report ---
ED General - General Chief Complaint: Psych Problem Stated Complaint: PSYCH Time Seen by Provider: 12/29/19 00:38 Primary Care Provider: ALISA OVERTON MD [Primary Care Provider] - Follow up as needed Information source: Patient TRAVEL OUTSIDE OF THE [place] IN LAST 30 DAYS: No - HPI Onset: Other - over the last several weeks Onset/Duration: Sudden Quality of pain: No pain Severity: Moderate Pain Level: Denies Associated symptoms: Other - suicidal, depressed Exacerbated by: Denies Relieved by: Denies Similar symptoms previously: Yes Recently seen / treated by doctor: Yes - patient seen in this ER earlier in the month for ankle pain Notes: 29 year old female with a history of depression, anxiety, ADHD, Bipolar here in the ER for depression and thoughts of wanting to kill herself. The patient has b een thinking about a friend of hers who shot herself 2 years ago. The patient says if she had a gun she would shoot herself. The patient tells me, however, she does not have access to a gun. The patient says she says she just doesnt feel like living any more. 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 - Related Data Allergies/Adverse Reactions: No Known Allergies Allergy (Verified 12/28/19 23:50) Home Medications: cymbalta Past Medical History - General Information source: Patient - Social History Smoking Status: Never Smoker Frequency of alcohol use: None Drug Abuse: None Family History: Reviewed & Not Pertinent Patient has homicidal ideation: No Renal/ Medical History: Denies: Hx Peritoneal Dialysis Psychiatric Medical History: Reports: Hx Anxiety - Panic attacks, Hx Attention Deficit Hyperactivity Disorder, Hx Bipolar Disorder, Hx Depression Past Surgical History: Reports: Hx Oral Surgery - Immunizations Immunizations up to date: Yes Hx Diphtheria, Pertussis, Tetanus Vaccination: Yes Hx Pneumococcal Vaccination: 07/06/00 Review of Systems - Review of Systems Constitutional: Other - Trouble sleeping EENT: No symptoms reported Cardiovascular: No symptoms reported Respiratory: No symptoms reported Gastrointestinal: No symptoms reported Genitourinary: No symptoms reported Female Genitourinary: No symptoms reported Musculoskeletal: No symptoms reported Skin: No symptoms reported Hematologic/Lymphatic: No symptoms reported Neurological/Psychological: Depression, Suicidal ideation -: Yes All other systems reviewed and negative Physical Exam - Vital signs Vitals: Temp Pulse Resp BP Pulse Ox 98.1 F 88 16 143/93 H 96 12/28/19 23:51 12/28/19 23:51 12/28/19 23:51 12/28/19 23:51 12/28/19 23:51 - Notes Notes: GENERAL: Well-appearing, well-nourished and in no acute distress. HEAD: Atraumatic, normocephalic. EYES: Pupils equal round and reactive to light, extraocular movements intact, sclera anicteric, conjunctiva are normal. ENT: External ears normal, nares patent, oropharynx clear without exudates. Moist mucous membranes. NECK: Normal range of motion, supple without lymphadenopathy or JVD. LUNGS: Breath sounds clear to auscultation bilaterally and equal. No wheezes rales or rhonchi. HEART: Regular rate and rhythm without murmurs, rubs or gallops. ABDOMEN: Soft, nontender, normoactive bowel sounds. No guarding, no rebound. No masses appreciated. EXTREMITIES: Normal range of motion, no pitting or edema. No clubbing or cyanosis. NEUROLOGICAL: Cranial nerves II through XII grossly intact. Normal speech, normal gait. PSYCH: Patient is depressed and suicidal. Flat affect. SKIN: Warm, Dry, normal turgor, no rashes or lesions noted. Course - Re-evaluation Re-evalutation: 12/29/19 00:55 The patient is medically cleared and awaiting Psych assessment and disposition. The patient is suicidal. - Vital Signs Vital signs: Temp Pulse Resp BP Pulse Ox 98.1 F 88 16 143/93 H 96 12/28/19 23:51 12/28/19 23:51 12/28/19 23:51 12/28/19 23:51 12/28/19 23:51 - Laboratory Result Diagrams: 12/28/19 00:59 12/28/19 00:59 Laboratory results interpreted by me: 12/28/19 12/28/19 00:59 00:59 Hct 35.6 L Salicylates < 1.0 L Acetaminophen < 10 L - EKG Interpretation by [facility] EKG shows normal: Sinus rhythm, Turner, Intervals, QRS Complexes, ST-T Waves Rate: Normal Rhythm: NSR Discharge - Discharge Clinical Impression: Suicidal ideations Condition: Stable Disposition: OTHER Referrals: ALISA OVERTON MD [Primary Care Provider] - Follow up as needed
[2019-12-29 00:59] LABS: APPEARANCE,URINE CLOUDY; BILIRUBIN,URINE NEGATIVE (NEGATIVE); COLOR,URINE YELLOW; GLUCOSE, URINE NEGATIVE (NEGATIVE); KETONES,URINE TRACE mg/dL (NEGATIVE); LEUKOCYTE ESTERASE,URINE NEGATIVE (NEGATIVE); NITRITE,URINE NEGATIVE (NEGATIVE); PROTEIN,URINE NEGATIVE (NEGATIVE); URINE SPECIFIC GRAVITY 1.021
[2019-12-29 01:19] LABS: URINE AMPHETAMINES SCREEN NEGATIVE; URINE BARBITURATES SCREEN NEGATIVE; URINE BENZODIAZEPINES SCREEN NEGATIVE; URINE COCAINE SCREEN NEGATIVE; URINE MARIJUANA (THC) SCREEN NEGATIVE; URINE METHADONE SCREEN NEGATIVE; URINE PHENCYCLIDINE SCREEN NEGATIVE
--- NOTE | 2019-12-29 10:03 | EKG REPORT ---
SEVERITY:- NORMAL ECG - SINUS RHYTHM : Confirmed by: Bunny Rivera 29-Dec-2019 10:01:31
[2019-12-29 18:09] VITALS: BP 132/68
--- NOTE | 2019-12-30 12:11 | PSYCHOLOGICAL NOTE ---
Psych Note - Psych Note Date seen by psych provider: 12/29/19 Time seen by psych provider: 12:58 - [id number]. Again early evening. Psych Note: Presenting Problem: Patient is a 29 year old female who presented to the [facility] ED late last night via EMS for increased depression for several weeks and suicidal ideation with statement "if I had a gun or noose I would kill myself." She reported she has been thinking about her friend who shot and killed herself two years ago. Patient stated she was the one to call EMS for help. She denied current suicidal ideation and stated "I am just tired, I have been tired, I slept hard last night." She stated "I am calm now, it comes and goes." She stated her friend committed suicide two years ago on 's Day via shooting self and said "I saw the bullet hole, got to say goodbye, but was not able to go to since it was in [place]." Patient further stated she often gets the image of a spider crawling out of the bullet hole. She admitted to hitting herself in her head with her hands, it has been increasing, and it is when she is frustrated or trying to get herself in check. Patient stated her outpatient provider is Dr. Gustafson at [facility] and she is currently prescribed Cymbalta. She stated they have tried many medications (mentioned Risperdal but could not recall other names). Patient reported diagnoses of Bipolar and PTSD. Patient said she was not currently in therapy but commented "I think I need grief therapy." She also admitted to "anger issues." She stated her mother when she was 15, grandmother when she was 23 and then her friend committing suicide 2 years ago. She noted poor sleep, working afternoons and taking a long time ti wind down after getting off work. Patient admitted to previous hospitalization (once at [facility], twice at [facility]) when she was younger. She denied having firearms in her home. She stated she never took any action and does not have access to a gun or noose. She again admitted to having suicidal thoughts "sometimes but I don't think I could take action." She stated she lives alone, works via [employer] via [employer] doing [employer] work, brother is a senior copywriter in [place] and father is a Missionary who is traveling the country currently. Patient was worried about work, supposed to work at 1430 but the van picks her up from home sooner, asked if she could call her boss Jodi. She was allowed to do so. She also described justice Zapata as a friend/someone she has confided in recently and could include her in plan of care. UDS negative for all substances tested for. Discussed with patient what her plans are for when she gets home. She stated she wanted to "eat a Hot Pocket the 4 Cheese is her favorite, clean up a little and then sleep some more." She stated "I don't have a ride home, I [place] near [facility], I could walk." Was able to get a one time cab voucher per [employer]. Chart review revealed patient has been seen in the ED by Behavioral Health in 2013 and 2014 for suicidal ideation and overdose. The overdose was related to abusing narcotics. The information she shared then matches the history she reported today so consistency. Patient was alert and oriented to self, person, place, time and situation. Mood was euthymic with congruent affect. She denied current suicidal and homicidal ideation, admitted to thoughts last night with statements, denied action, denied having access to firearms or a noose, admitted to past attempts when younger and stated now she doesn't think she could ever act on it. Patient did not appear to be responding to internal stimuli as evidenced by fair eye contact and answering questions appropriately when addressed. Thought processes were linear and organized. Conversational speech was within normal limits for rate, tone and prosody. Intellectual abilities are estimated to be average. Insight, judgment and impulse control were fair as evidenced by being engaged and seemingly open/honest based on information from previous ED visit. Collateral: At 1738 called patient's boschristina Zapata ([phone]). Patient gave verbal consent to do so and provided contact information from her cell phone (security obtained it from [employer]). Did not provide specifics (had conversation with patient about what information would be shared). Noted patient has been thinking about her friend who killed herself two years ago, struggling with it and reached out for help last night. Explained patient being discharged, she already has an outpatient mental health provider in place, she is to try to do a walk in follow up tomorrow or Thursday, she has access to crisis numbers and just wanted to make someone aware who is in her life regularly. Justice stated she has worked with patient the past two years and just recently found out about her friend that killed herself. She knew about patient's brother in [place] who is a police office and father who has retired and doing Missionary work so gone a lot now. Justice stated "patient doesn't talk much and doesn't get along with too many peop le." Boschristina acknowledged patient called her the night before last to talk about her friend. She stated she would call patient in a couple hours to check in in her. Clinical Presentation: Suicidal Ideation Grief Diagnosis: Uncomplicated Bereavement History of Bipolar and PTSD per patient Impression/Plan: Patient is cleared from acute psychiatric services. She denied current suicidal and homicidal ideation, admitted to thoughts at times, admitted to having thoughts last night and making statement, denied taking any action or having access to firearms or noose, admitted to history of suicide when she was younger which resulted in hospitalizations ([facility], twice [facility]). She identified trigger being thoughts of her best friend that committed suicide by shooting herself 2 years ago. She has mental health provider already at [facility]. Recommended she follow up as a walk in tomorrow (12/30/2019), reminded her they are only open til noon on Fridays so if unable to be seen them Thursday (01/02/2020) morning and request therapist for grief and anger. Patient had been concerned about work and letting boss know she would not be in today (future/forward thinking). Included patient's boss Jodi in plan of care and to call patient in a couple hours for check in. Obtained one time cab voucher since patient since patient did not have transportation. Patient said her plan once home was to eat her favorite 4 cheese Hot Pocket, clean up a bit and sleep some more. Provided the outpatient mental health resource sheet which highlighted both [facility] for jn is/talk therapy/linkage to other services and supports, stapled [facility] Crisis Chat Line card to resource sheet and documented walk in to [facility]. Consulted with Dr. Rodriguez regarding the management and care of patient. ED Physician in agreement with recommendations.
== END 2019-12-29 18:47 | disposition home or self-care (01) ==
LOC: ER 23:33
DX: R45.851 Suicidal ideations (principal); F43.21 Adjustment disorder with depressed mood; F31.9 Bipolar disorder, unspecified
CPT/HCPCS: 36415; 80053; 80307; 81001; 84703; 85025; 93005; 93010; 99285

== ENCOUNTER 2020-01-21 01:13 | Emergency (ER) | payer OTHER ==
[2020-01-21 04:31] LABS: ABSOLUTE EOSINOPHILS # (AUTO) 0.4 10^3/uL (0.0-0.6); ABSOLUTE LYMPHOCYTES (AUTO) 1.8 10^3/uL (0.5-4.7); ABSOLUTE MONOCYTES (AUTO) 0.3 10^3/uL (0.1-1.4); ABSOLUTE NEUT (AUTO) 4.4 10^3/uL (1.7-8.2); BASOPHILS % (AUTO) 0.6 % (0-2); EOSINOPHILS % (AUTO) 5.6 % (0-6); HEMATOCRIT 36.5 % (36.0-47.0); HEMOGLOBIN 12.5 g/dL (12.0-15.5); LYMPHOCYTES % (AUTO) 26.3 % (13-45); MEAN CORPUSCULAR HEMOGLOBIN 32.6 pg (27.0-33.4); MEAN CORPUSCULAR HGB CONC 34.3 g/dL (32.0-36.0); MEAN CORPUSCULAR VOLUME 95 fl (80-97); MONOCYTES % (AUTO) 4.2 % (3-13); PLATELET COUNT 260 10^3/uL (150-450); RED BLOOD COUNT 3.85 10^6/uL (3.72-5.28); RED CELL DISTRIBUTION WIDTH 12.3 % (11.5-14.0); SEGMENTED NEUTROPHILS % (AUTO) 63.3 % (42-78); TOTAL CELLS COUNTED % (AUTO) 100 %; WHITE BLOOD COUNT 6.9 10^3/uL (4.0-10.5)
[2020-01-21 04:44] LABS: ALBUMIN 4.3 g/dL (3.5-5.0); ALKALINE PHOSPHATASE 82 U/L (38-126); ANION GAP 7 (5-19); ASPARTATE AMINO TRANSFERASE 21 U/L (14-36); BILIRUBIN,TOTAL 0.4 mg/dL (0.2-1.3); BLOOD UREA NITROGEN 5 mg/dL (7-20); CALCIUM 9.7 mg/dL (8.4-10.2); CARBON DIOXIDE 28 mmol/L (22-30); CHLORIDE 102 mmol/L (98-107); CREATINE KINASE 109 U/L (30-135); GLUCOSE 106 mg/dL (75-110); POTASSIUM 4.3 mmol/L (3.6-5.0); TOTAL PROTEIN 7.2 g/dL (6.3-8.2)
--- NOTE | 2020-01-21 05:54 | ER Document Report ---
ED General - General Chief Complaint: Flu Symptoms Stated Complaint: CHILLS/DIZZY Time Seen by Provider: 01/21/20 03:49 Primary Care Provider: ALISA OVERTON MD [Primary Care Provider] - Follow up as needed Notes: 29 y/o female presenting today for vague complaints of feeling feverish, sweating, dizziness and does not feel like herself. These symptoms started yesterday. States she feels dizzy when standing but then the symptoms resolve in a few seconds. States that she has felt feverish but has not been able to check her temperature. Has not taken any medications for her symptoms. Denies any vomiting, nausea, or diarrhea. Has been able to keep food and fluids down. LMP was earlier this month. She states that she feels warm. No chills. Denies any hearing loss, or ringing in the ears. States she has had some light sensitivity. Denies headache, shortness of breath, chest pain or additional symptoms. Covid tested on . TRAVEL OUTSIDE OF THE [place] IN LAST 30 DAYS: No - Related Data Allergies/Adverse Reactions: No Known Allergies Allergy (Verified 12/28/19 23:50) Past Medical History - Social History Smoking Status: Never Smoker Frequency of alcohol use: Social Drug Abuse: None Family History: Reviewed & Not Pertinent Patient has homicidal ideation: No Renal/ Medical History: Denies: Hx Peritoneal Dialysis Psychiatric Medical History: Reports: Hx Anxiety - Panic attacks, Hx Attention Deficit Hyperactivity Disorder, Hx Bipolar Disorder, Hx Depression Past Surgical History: Reports: Hx Oral Surgery - Immunizations Immunizations up to date: Yes Hx Diphtheria, Pertussis, Tetanus Vaccination: Yes Hx Pneumococcal Vaccination: 07/06/00 Review of Systems - Review of Systems Constitutional: See HPI EENT: See HPI Cardiovascular: No symptoms reported Respiratory: No symptoms reported Gastrointestinal: No symptoms reported Genitourinary: No symptoms reported Female Genitourinary: No symptoms reported Musculoskeletal: No symptoms reported Skin: No symptoms reported Hematologic/Lymphatic: No symptoms reported Neurological/Psychological: No symptoms reported Physical Exam - Vital signs Vitals: Temp Pulse Resp BP Pulse Ox 97.9 F 95 16 127/72 H 99 01/21/20 01:40 01/21/20 01:40 01/21/20 01:40 01/21/20 01:40 01/21/20 01:40 Interpretation: Normal - Notes Notes: Adult General: GENERAL: Alert, interacts well. No acute distress HEAD: Normocephalic, atraumatic EYES: Pupils equal, round and reactive to light. Extraocular movements intact. ENT: Airway patent. Nares patent. NECK: Full range of motion. Supple. Trachea midline. No lymphadenopathy. LUNGS: Clear to auscultation bilaterally, no wheezes, rales, or rhonchi. No respiratory distress. Nontender chest wall. HEART: Regular rate and rhythm. No murmurs, rubs or gallops. ABDOMEN: Soft, nontender. Nondistended. Bowel sounds present in all 4 quadrants. No rebound, guarding or masses. GENITOURINARY: Deferred EXTREMITIES: Moves all 4 extremities spontaneously. BACK: Moves all extremities with full range of motion. NEUROLOGICAL: Alert and oriented x3. Normal speech. Cranial nerves II through XII grossly intact. Strength 5/ 5 in all extremities. PSYCH: Normal affect, normal mood. SKIN: Warm, dry, normal turgor. No rashes or lesions noted. Course - Re-evaluation Re-evalutation: 01/21/20 05:36 She is in no acute distress, nontoxic in appearance. Patient presenting with vague symptoms. Physical exam and movement is not exacerbating or causing dizziness symptoms. She denies being dizzy currently. States that the dizziness only lasts for a couple of seconds. And then resolves. Is able to ambulate with no difficulty. She does not desire to have any IV fluids as she does not like needles. Is agreeable to drinking fluids. Her orthostatics are normal. 01/21/20 08:05 Followed up with the patient she reports that she no longer is experiencing her symptoms of dizziness. States that she feels better. I discussed with patient that her lab results have been unremarkable. I will go ahead and discharge her with the medication meclizine if her symptoms persist again. She was also tested for COVID on . Patient will need to follow instructions on discharge paperwork for being a person under investigation. she may return to the emergency department if she has worsening symptoms or development of new symptoms. Please follow-up with your primary care provider as well. - Vital Signs Vital signs: Temp Pulse Resp BP Pulse Ox 97.9 F 84 16 129/88 H 99 01/21/20 01:40 01/21/20 03:29 01/21/20 01:40 01/21/20 03:29 01/21/20 01:40 - Laboratory Result Diagrams: 01/21/20 04:16 01/21/20 04:16 Laboratory results interpreted by me: 01/21/20 01/21/20 04:16 06:40 Sodium 136.9 L BUN 5 L Urine Ascorbic Acid 20 H Discharge - Discharge Clinical Impression: Chills (without fever), Dizzy, Person under investigation for COVID-19 Condition: Stable Disposition: HOME, SELF-CARE Instructions: COVID-19 Guidance for Persons Under Investigation, Dizziness ([facility]), Meclizine ([facility]) Additional Instructions: Your labs have been unremarkable. Please follow-up with your primary care provider if your symptoms persist. You may also return to the emergency department as well for continued symptoms or worsening symptoms. Prescriptions: Meclizine HCl [Antivert 25 mg Tablet] 25 mg PO TID PRN #21 tablet PRN Reason: Referrals: ALISA OVERTON MD [Primary Care Provider] - Follow up as needed
[2020-01-21 06:55] LABS: APPEARANCE,URINE SLIGHTLY-CLOUDY; BILIRUBIN,URINE NEGATIVE (NEGATIVE); COLOR,URINE YELLOW; GLUCOSE, URINE NEGATIVE (NEGATIVE); KETONES,URINE NEGATIVE (NEGATIVE); LEUKOCYTE ESTERASE,URINE NEGATIVE (NEGATIVE); NITRITE,URINE NEGATIVE (NEGATIVE); PROTEIN,URINE NEGATIVE (NEGATIVE); URINE SPECIFIC GRAVITY 1.008; UROBILINOGEN,URINE NEGATIVE mg/dL (<2.0)
[2020-01-21 08:11] VITALS: BP 108/82
== END 2020-01-21 07:50 | disposition home or self-care (01) ==
LOC: ER 01:13
DX: R68.83 Chills (without fever) (principal); R42 Dizziness and giddiness; R61 Generalized hyperhidrosis; Z20.828 Contact with and (suspected) exposure to other viral communicable diseases
CPT/HCPCS: 36415; 80053; 81001; 81025; 82550; 83735; 84443; 85025; 99284

== ENCOUNTER 2020-01-22 22:29 | Emergency (ER) | payer OTHER ==
[2020-01-23] MEDS ORDERED: DULOXETINE HCL 30 MG CAPSULE.DR PO ONE (03:57)
--- NOTE | 2020-01-23 03:59 | ER Document Report ---
HPI - HPI Time Seen by Provider: 01/23/20 02:44 Pain Level: Denies Notes: 29-year-old female patient presents the emergency department with concern for anxiety and the need for medication refill. Patient reports she has been out of her medication for a few days. She reports that she has been feeling particularly anxious since not being on her medication. She denies any suicidal homicidal ideations. She denies any acute medical complaints today. - ROS Systems Reviewed and Negative: Yes All other systems reviewed and negative - CONSTITUTIONAL Constitutional: DENIES: Fever, Chills Notes: Anxiety - REPRODUCTIVE Reproductive: DENIES: : Past Medical History - General Information source: Patient - Social History Smoking Status: Never Smoker Chew tobacco use (# tins/day): No Frequency of alcohol use: Social Drug Abuse: None Family History: Reviewed & Not Pertinent Patient has homicidal ideation: No Renal/ Medical History: Denies: Hx Peritoneal Dialysis Psychiatric Medical History: Reports: Hx Anxiety - Panic attacks, Hx Attention Deficit Hyperactivity Disorder, Hx Bipolar Disorder, Hx Depression Past Surgical History: Reports: Hx Oral Surgery - Immunizations Immunizations up to date: Yes Hx Diphtheria, Pertussis, Tetanus Vaccination: Yes Hx Pneumococcal Vaccination: 07/06/00 Vertical Provider Document - CONSTITUTIONAL Notes: PHYSICAL EXAMINATION: GENERAL: Well-appearing, well-nourished and in no acute distress. HEAD: Atraumatic, normocephalic. EYES: Pupils equal round extraocular movements intact, conjunctiva are normal. ENT: Nares patent NECK: Normal range of motion LUNGS: No respiratory distress Musculoskeletal: Normal range of motion NEUROLOGICAL: Normal speech, normal gait. PSYCH: Normal mood, normal affect. SKIN: Warm, Dry, normal turgor, no rashes or lesions noted. - INFECTION CONTROL TRAVEL OUTSIDE OF THE [place] IN LAST 30 DAYS: No Course - Re-evaluation Re-evalutation: Patient reports that she feels well. Her physical exam is unremarkable. She is requesting a medication refill of her Cymbalta. She reports she should be able to get a follow-up appointment with her primary care provider this week. I will provide her with a 1 week prescription of her medication and explained to her that it is important for her to have routine follow-ups with her primary care team. Patient verbalized understanding and agreement with same. - Vital Signs Vital signs: Temp Pulse Resp BP Pulse Ox 98.8 F 98 16 139/96 H 96 01/22/20 22:34 01/22/20 22:34 01/22/20 22:34 01/22/20 22:34 01/22/20 22:34 Discharge - Discharge Clinical Impression: Medication refill Condition: Stable Disposition: HOME, SELF-CARE Additional Instructions: I have sent in a prescription for 1 week worth of your Cymbalta. It is very important that you follow-up with your psychiatry team so that they can manage your medications. Please return to the emergency department with any new or worsening symptoms to include suicidal or homicidal thoughts. Prescriptions: Duloxetine HCl 60 mg PO DAILY #7 capsule.dr Referrals: ALISA OVERTON MD [Primary Care Provider] - Follow up as needed
[2020-01-23 04:51] VITALS: BP 127/81
--- NOTE | 2020-01-23 08:00 | EKG REPORT ---
SEVERITY:- NORMAL ECG - SINUS RHYTHM : Confirmed by: Bunny Rivera 23-Jan-2020 08:00:00
== END 2020-01-23 04:51 | disposition home or self-care (01) ==
LOC: ER 22:29
DX: Z76.0 Encounter for issue of repeat prescription (principal); F41.9 Anxiety disorder, unspecified
CPT/HCPCS: 93005; 93010; 99281

== ENCOUNTER → 2020-03-01 | Outpatient (CLI) | payer OTHER ==
[2020-03-01 12:38] LABS: ABSOLUTE EOSINOPHILS # (AUTO) 0.4 10^3/uL (0.0-0.6); ABSOLUTE LYMPHOCYTES (AUTO) 1.3 10^3/uL (0.5-4.7); ABSOLUTE MONOCYTES (AUTO) 0.3 10^3/uL (0.1-1.4); ABSOLUTE NEUT (AUTO) 3.1 10^3/uL (1.7-8.2); BASOPHILS % (AUTO) 0.7 % (0-2); HEMOGLOBIN 12.3 g/dL (12.0-15.5); MEAN CORPUSCULAR HEMOGLOBIN 32.7 pg (27.0-33.4); MEAN CORPUSCULAR HGB CONC 35.2 g/dL (32.0-36.0); MEAN CORPUSCULAR VOLUME 93 fl (80-97); MONOCYTES % (AUTO) 6.3 % (3-13); PLATELET COUNT 290 10^3/uL (150-450); RED BLOOD COUNT 3.78 10^6/uL (3.72-5.28); RED CELL DISTRIBUTION WIDTH 12.6 % (11.5-14.0); TOTAL CELLS COUNTED % (AUTO) 100 %; WHITE BLOOD COUNT 5.1 10^3/uL (4.0-10.5)
[2020-03-01 13:14] LABS: ALBUMIN 4.6 g/dL (3.5-5.0); ALKALINE PHOSPHATASE 68 U/L (38-126); ANION GAP 11 (5-19); ASPARTATE AMINO TRANSFERASE 24 U/L (14-36); BILIRUBIN,DIRECT 0.2 mg/dL (0.0-0.4); BILIRUBIN,TOTAL 0.6 mg/dL (0.2-1.3); BLOOD UREA NITROGEN 5 mg/dL (7-20); CALCIUM 9.8 mg/dL (8.4-10.2); CARBON DIOXIDE 25 mmol/L (22-30); CHLORIDE 103 mmol/L (98-107); GLUCOSE 99 mg/dL (75-110); POTASSIUM 5.1 mmol/L (3.6-5.0); TOTAL PROTEIN 7.5 g/dL (6.3-8.2); TRIGLYCERIDES 108 mg/dL (<150)
[2020-03-01 13:26] LABS: DIRECT LDL 85 mg/dL (<100)
== END ==
LOC: OD 11:51
PROVIDERS: ATTEND Psychiatry & Neurology Psychiatry
DX: F31.31 Bipolar disorder, current episode depressed, mild (principal); Z79.899 Other long term (current) drug therapy
CPT/HCPCS: 36415; 80053; 80061; 83036; 84443; 85025

== ENCOUNTER 2020-04-10 18:22 | Emergency (ER) | payer OTHER ==
[2020-04-10] MEDS ORDERED: DIPHENHYDRAMINE HCL 50 MG/ML VIAL IV ONE (19:28)
[2020-04-10] MEDS ORDERED: METHYLPREDNISOLONE INJ 125 MG/2 ML SDV IV ONE (19:28)
[2020-04-10] MEDS ORDERED: NORMAL SALINE 1000 ML 1,000 ML IV ONE (19:29)
--- NOTE | 2020-04-10 19:37 | ER Document Report ---
ED Medical Screen (RME) - General Chief Complaint: Neck Swelling Stated Complaint: NECK PAIN,LUMP ON NECK Time Seen by Provider: 04/10/20 19:22 Primary Care Provider: ANAMARIA FLOREZ MD [Primary Care Provider] - Follow up as needed TRAVEL OUTSIDE OF THE [place] IN LAST 30 DAYS: No - HPI Notes: 04/10/20 19:29 [id number] female with a history of anxiety presents to the emergency room with complaints of neck swelling and tightness that has become progressively worse over the last several weeks, states that today the swelling/tightness in her neck has become worse. She states that today she started to have difficulty with breathing and she thinks this is related to soft tissue swelling of her neck. New foods vitamins, medications aside from the Abilify a few weeks ago, detergents, travel. Denies any cough, shortness of breath, fever or chills patient's pulse ox has remained 100%, speaking in full sentences, no drooling or trismus or stridor. Patient has not tried any complaints I have greeted and performed a rapid initial assessment of this patient. A comprehensive ED assessment and evaluation of the patient, analysis of test results and completion of the medical decision making process will be conducted by additional ED providers. PHYSICAL EXAMINATION: GENERAL: Well-appearing, well-nourished and in no acute distress. HEAD: Atraumatic, normocephalic. EYES: Pupils equal round extraocular movements intact, conjunctiva are normal. posterior pharynx without erythema, uvula midline. no trismus. no noted neck swelling. no drooling. gag reflex intact when using tongue blade to check oral pharynx NECK: Normal range of motion CV: s1, s2 regular LUNGS: No respiratory distress Musculoskeletal: Normal range of motion NEUROLOGICAL: Normal speech, normal gait. SKIN: Warm, Dry, normal turgor, no rashes or lesions noted. - Related Data Allergies/Adverse Reactions: No Known Allergies Allergy (Verified 12/28/19 23:50) Home Medications: abilify Past Medical History - Social History Chew tobacco use (# tins/day): No Frequency of alcohol use: None Drug Abuse: None Renal/ Medical History: Denies: Hx Peritoneal Dialysis Psychiatric Medical History: Reports: Hx Anxiety - Panic attacks, Hx Attention Deficit Hyperactivity Disorder, Hx Bipolar Disorder, Hx Depression Past Surgical History: Reports: Hx Oral Surgery - Immunizations Immunizations up to date: Yes Hx Diphtheria, Pertussis, Tetanus Vaccination: Yes Physical Exam - Vital signs Vitals: Temp Pulse Resp BP Pulse Ox 98.6 F 99 16 110/89 H 100 04/10/20 18:40 04/10/20 18:40 04/10/20 18:40 04/10/20 18:40 04/10/20 18:40 Course - Vital Signs Vital signs: Temp Pulse Resp BP Pulse Ox 98.6 F 99 16 110/89 H 100 04/10/20 19:24 04/10/20 18:40 04/10/20 18:40 04/10/20 18:40 04/10/20 18:40 Doctor's Discharge - Discharge Referrals: ANAMARIA FLOREZ MD [Primary Care Provider] - Follow up as needed
[2020-04-10 19:49] LABS: ABSOLUTE EOSINOPHILS # (AUTO) 0.3 10^3/uL (0.0-0.6); EOSINOPHILS % (AUTO) 4.2 % (0-6); TOTAL CELLS COUNTED % (AUTO) 100 %; WHITE BLOOD COUNT 6.4 10^3/uL (4.0-10.5)
[2020-04-10 19:54] LABS: ABSOLUTE LYMPHOCYTES (AUTO) 1.8 10^3/uL (0.5-4.7); ABSOLUTE MONOCYTES (AUTO) 0.3 10^3/uL (0.1-1.4); BASOPHILS % (AUTO) 0.6 % (0-2); HEMATOCRIT 37.5 % (36.0-47.0); HEMOGLOBIN 13.2 g/dL (12.0-15.5); LYMPHOCYTES % (AUTO) 28.1 % (13-45); MEAN CORPUSCULAR HGB CONC 35.1 g/dL (32.0-36.0); MEAN CORPUSCULAR VOLUME 94 fl (80-97); MONOCYTES % (AUTO) 5.3 % (3-13); PLATELET COUNT 270 10^3/uL (150-450); RED BLOOD COUNT 3.99 10^6/uL (3.72-5.28); RED CELL DISTRIBUTION WIDTH 12.7 % (11.5-14.0); SEGMENTED NEUTROPHILS % (AUTO) 61.8 % (42-78)
[2020-04-10 20:10] LABS: ANION GAP 11 (5-19); BLOOD UREA NITROGEN 5 mg/dL (7-20); CALCIUM 9.9 mg/dL (8.4-10.2); CARBON DIOXIDE 29 mmol/L (22-30); CHLORIDE 100 mmol/L (98-107); GLUCOSE 105 mg/dL (75-110); POTASSIUM 4.6 mmol/L (3.6-5.0)
--- NOTE | 2020-04-10 20:37 | RADIOLOGY REPORT (SQ) ---
EXAM DESCRIPTION: XR NECK SOFT TISSUE 2 views COMPLETED DATE/TME: 04/10/2020 19:28 CLINICAL HISTORY: 29 years, Female, throat swelling [id number], worse today COMPARISON: None. NUMBER OF VIEWS: TECHNIQUE: LIMITATIONS: None. FINDINGS: There is no evidence of retropharyngeal swelling. The epiglottis appears normal. The airway is patent. No evidence of radiopaque foreign body. There is partial fusion of C6 and C7. IMPRESSION: No acute finding. copyright 2010 [employer]- All Rights Reserved
[2020-04-11 01:01] LABS: APPEARANCE,URINE CLEAR; BILIRUBIN,URINE NEGATIVE (NEGATIVE); COLOR,URINE STRAW; GLUCOSE, URINE NEGATIVE (NEGATIVE); KETONES,URINE NEGATIVE (NEGATIVE); LEUKOCYTE ESTERASE,URINE NEGATIVE (NEGATIVE); NITRITE,URINE NEGATIVE (NEGATIVE); PROTEIN,URINE NEGATIVE (NEGATIVE); URINE SPECIFIC GRAVITY 1.005; UROBILINOGEN,URINE NEGATIVE mg/dL (<2.0)
[2020-04-11 01:12] VITALS: BP 119/81
== END 2020-04-11 03:45 | disposition left against medical advice (07) ==
LOC: ER 18:22
DX: R22.1 Localized swelling, mass and lump, neck (principal); F41.9 Anxiety disorder, unspecified
CPT/HCPCS: 36415; 70360; 80048; 81001; 81025; 85025; 99281